=== PATIENT | female | born 1945 | race Hispanic/Latino ===

== ENCOUNTER 2018-11-12 20:16 | Emergency (ER) | payer MEDICARE ==
[~2018-11-12] VITALS: Ht 147.3 cm; Wt 59.0 kg
[~2018-11-12 20:16] MED LIST: AMLODIPINE BESYL5 MG PO; ATORVASTATIN CA20 MG PO; LEVAQUIN500 MG PO; LISINOPRIL10 MG PO; METFORMIN HCL500 MG PO; PREDNISONE10 MG PO
[2018-11-12] MEDS ORDERED: AMLODIPINE BESYLATE 5 MG TAB PO NR (21:00)
[2018-11-12] MEDS ORDERED: CLONIDINE HCL 0.1 MG TAB PO ONE (21:00)
[2018-11-12] MEDS ORDERED: ACETAMINOPHEN 325 MG TAB PO NR (21:00)
== END 2018-11-12 22:05 | disposition home or self-care (01) ==
LOC: FSED 20:16
DX: I10 Essential (primary) hypertension (principal); R51 Headache; E11.9 Type 2 diabetes mellitus without complications; Z79.84 Long term (current) use of oral hypoglycemic drugs
CPT/HCPCS: 99283

== ENCOUNTER 2019-04-04 19:33 | Observation (INO) | payer MEDICARE ==
[~2019-04-04] VITALS: Ht 147.3 cm; Wt 53.5 kg
--- OUTSIDE RECORDS SUMMARY | 2019-04-04 19:35 | XMS REPORT ---
Author Author [facility] Address Unknown Phone Unavailable Care Team Providers Care High Lift Operator Name Role Phone Unavailable Unavailable Problems This patient has no known problems. Allergies, Adverse Reactions, Alerts This patient has no known allergies or adverse reactions. Medications This patient has no known medications. Results Test Description Test Time Test Comments Text Results Atomic Results Result Comments BREAST ULTRASOUND RIGHT 2018-07-22 14:49:20 - BREAST ULTRASOUND RIGHTULTRASOUND OF RIGHT BREAST: 07/22/2018CLINICAL: Abnormal mammogram. No prior exams were available for comparison. Color flow and real-time ultrasound of the right breast were performed. Lopez scale images of the real-time examination were reviewed. The breast tissue has fibroglandular background echotexture. Targeted right breast ultrasound demonstrates a sebaceous cyst that measures 8 mm at 3 o'clock, 9 cm from the nipple, correlating with the mammographic skin based mass, benign. The rest of the survey ultrasound is negative. No axillary lymphadenopathy was seen.IMPRESSION: BENIGN Sebaceous cyst, benign. There is no sonographic evidence of malignancy. Resume annual screening mammography in one year. Amnol Vargas M.D. ss/:07/22/2018 14:49:20 Head Teller: Madhavi COFFEY, [facility] sent: BIRADS 1-2 Normal Ultrasound BI-RADS: 2 Benign SCR MAMM BILATERAL GABE CAD DIGITAL 2018-07-15 09:35:40 - SCR MAMM BILATERAL GABE CAD DIGITALBILATERAL DIGITAL SCREENING MAMMOGRAM 3D/2D WITH CAD: 07/15/2018CLINICAL: Asymptomatic. Digital breast tomosynthesis was performed in addition to routine CC and MLO views. Current mammographic images were evaluated by either a [employer] M-Vu or a [employer] Image[employer]er CAD (computer aided detection system). Comparison is made to exams dated 06/17/2017 mammogram, mammogram, and 06/05/2015 mammogram - [facility]. There are scattered fibroglandular tissues in both breasts. There is a partially visualized mass in the inferior right breast at posterior depth seen only on the mediolateral oblique view, 7 cm from the nipple. This finding is best seen on the right MLO tomosynthesis slice #41 and may be superficially located in the skin.No other significant masses, calcifications, or other findings are seen in either breast. IMPRESSION: INCOMPLETE ASSESSMENT: ADDITIONAL IMAGING EVALUATION RECOMMENDEDPartially visualized, inferior right b reast mass at posterior depth (best seen on right MLO tomosynthesis slice #41), which appears to be localized in the skin on the tomosynthesis images. Ultrasound with possible additional views are recommended. Shandra Woodruff D.O. al/:07/15/2018 09:35:40 Head Teller: Candelaria Malik FW, [facility] sent: Additional Imaging Mammogram BI-RADS: 0 Indeterminate
[2019-04-04] MEDS ORDERED: LABETALOL HCL 5 MG/ML 20ML VIAL IV STA (19:42)
[2019-04-04] MEDS ORDERED: NITROGLYCERIN 2% OINT 1 GM PKT TOP ONE (19:45)
[2019-04-04] MEDS ORDERED: ASPIRIN 81 MG CHEW TAB PO ONE (19:45)
[2019-04-04] MEDS ORDERED: FAMOTIDINE 20 MG/2 ML VIAL IV ONE ×2 (19:45→20:04)
[2019-04-04] MEDS ORDERED: ACETAMINOPHEN 325 MG TAB PO ONE (19:45)
[2019-04-04] MEDS ORDERED: ACETAMINOPHEN 325 MG TAB ONE (20:04)
[2019-04-04] MEDS ORDERED: ONDANSETRON HCL INJ 2MG/ML 2ML 2 MG/ML VIAL ONE (20:04)
[2019-04-04] MEDS ORDERED: NITROGLYCERIN 2% OINT 1 GM PKT ONE (20:04)
[2019-04-04] MEDS ORDERED: ASPIRIN 81 MG CHEW TAB ONE (20:04)
[2019-04-04] MEDS ORDERED: LABETALOL HCL 20 ML ONE (20:04)
[2019-04-04] MEDS: ONDANSETRON HCL INJ 2MG/ML 2ML 2 MG/ML VIAL IV PRN (20:07)
[2019-04-04] MEDS ORDERED: ONDANSETRON HCL INJ 2MG/ML 2ML 2 MG/ML VIAL IV PRN (20:30)
[2019-04-04] MEDS ORDERED: ENALAPRILAT IV INJ 1.25 MG/ML VIAL IV PRN (20:30)
[2019-04-04] MEDS ORDERED: DIPHENHYDRAMINE HCL INJ 50 MG/ML VIAL IV PRN (20:30)
[2019-04-04] MEDS ORDERED: MORPHINE SULFATE 2 MG/ML SYR 1ML IV PRN (20:30)
[2019-04-04] MEDS ORDERED: ZOLPIDEM TARTRATE 5 MG TAB PO PRN (20:30)
[2019-04-04] MEDS ORDERED: ENOXAPARIN SODIUM INJ 100 MG/ML SYR SC ONE ×2 (20:30→22:39)
--- NOTE | 2019-04-04 20:50 | Diagnostic Imaging Report ---
A single frontal view of the chest. HISTORY: Chest pain COMPARISON: None available. DISCUSSION: Portable technique, limits sensitivity of the exam. Tubes/Lines: None Lungs and pleura: The lungs are well inflated. No evidence of a consolidative pneumonia or pulmonary alveolar edema. No definite pleural effusion or pneumothorax is identified. Heart and mediastinum: The cardiomediastinal silhouette appear(s) unremarkable. Bones and soft tissues: Appear unremarkable, given this limited exam. IMPRESSION: No acute radiographic abnormality. Signed by: Dr. Abebe Ge D.O., M.M.M. on 04/04/2019 8:46 PM
--- NOTE | 2019-04-04 22:25 | NUR ---
Maria Luisa byrne in [facility] - 04/04/19 at 2300 by [facility] NTIFIED 30 MINUTE ETA NOTED.
--- NOTE | 2019-04-04 22:25 | NUR ---
[facility] NOTIFIED ETA 30 MINUTES
[2019-04-04] MEDS: FAMOTIDINE 20 MG TAB PO SCH (22:26)
[2019-04-04] MEDS: METOPROLOL TARTRATE 25 MG TAB PO SCH (22:26)
--- NOTE | 2019-04-04 22:50 | NUR ---
NITRO PASTE REMOVED R/T BP 116/63 HR [address] AMBROCIO. PT AMBULATORY TO BATHROOM. FAMILY AT BEDSIDE. DENIES PAIN AT THIS TIME,, RESP EQUAL AND UNLABORED.
[2019-04-04 23:30] VITALS: BP 133/63
--- NOTE | 2019-04-04 23:30 | NUR ---
Received to 187 from free standing ER. Placed on EKG, pulse ox & NBP for monitoring. Admission history, family history, Initial admission assessment done.
[2019-04-04 23:43] VITALS: BP 133/68
[2019-04-05] VITALS (9 sets, daily range): BP systolic 83–161; BP diastolic 51–81
--- NOTE | 2019-04-05 | NUR ---
BS 118. Pierce and soda given per request.
[2019-04-05] MEDS: SIMVASTATIN 40 MG TAB PO SCH ×2 (00:24→21:33)
[2019-04-05] MEDS: NITROGLYCERIN 2% OINT 1 GM PKT TOP SCH ×4 (00:24→18:00)
--- NOTE | 2019-04-05 04:30 | NUR ---
BP low. Ntg ointment removed.
--- NOTE | 2019-04-05 04:45 | NUR ---
Refused to sign consent for Stress Test at this time.
--- NOTE | 2019-04-05 05:20 | NUR ---
Dr Haynes here. Spoke with pt about stress test. Agrees to sign consent.
--- NOTE | 2019-04-05 05:25 | NUR ---
Consent for Stress Test signed by pt.
[2019-04-05 05:27] LABS: BASOPHILS % 0.5 % (0.0-1.0); EOSINOPHILS # (AUTO) 0.1 (0.0-0.4); EOSINOPHILS % 1.4 % (0.0-6.0); HEMATOCRIT 27.1 % (34.2-44.1); LYMPHOCYTES # (AUTO) 1.6 (1.0-3.2); LYMPHOCYTES % 28.7 % (18.0-39.1); MEAN CORPUSCULAR HEMOGLOBIN 28.8 pg (28-32); MEAN CORPUSCULAR HGB CONC 33.2 g/dL (31-35); MEAN CORPUSCULAR VOLUME 86.6 fL (81-99); MONOCYTES # (AUTO) 0.4 (0.2-0.8); MONOCYTES % 6.8 % (4.4-11.3); NEUTROPHILS # (AUTO) 3.6 (2.1-6.9); NEUTROPHILS % 62.3 % (38.7-80.0); PLATELET COUNT 244 x10e3/uL (140-360); RED BLOOD COUNT 3.13 x10e6/uL (3.6-5.1)
[2019-04-05] MEDS: ACETAMINOPHEN 325 MG TAB PO PRN ×2 (05:43→14:34)
[2019-04-05 05:58] LABS: CHOL/HDL RATIO 2.7 (3.0-3.6); CREATINE KINASE 62 IU/L (29-168)
[2019-04-05 06:14] LABS: ALANINE AMINOTRANSFERASE 9 IU/L (0-55); ALBUMIN 3.1 g/dL (3.5-5.0); ALBUMIN/GLOBULIN RATIO 1.2 (0.8-2.0); ALKALINE PHOSPHATASE 37 IU/L (40-150); ANION GAP 11.2 mmol/L (8-16); BLOOD UREA NITROGEN 20 mg/dL (7-26); BUN/CREATININE RATIO 24 (6-25); CALCIUM 8.9 mg/dL (8.4-10.2); CARBON DIOXIDE 21 mmol/L (22-29); CHLORIDE 99 mmol/L (98-107); CREATININE, SERUM 0.85 mg/dL (0.57-1.11); EST GLOMERULAR FILTRATION RATE > 60 ML/MIN (60-); GLUCOSE 104 mg/dL (74-118); POTASSIUM 3.2 mmol/L (3.5-5.1); SODIUM 128 mmol/L (136-145)
[2019-04-05] MEDS ORDERED: DEXTROSE 50% SYRINGE 50 ML IV PRN (06:45)
--- NOTE | 2019-04-05 07:05 | NUR ---
SPIRITUAL CARE Assessment: Spiritual concern. Pt worried about illness and requested prayer prior to procedure. Pt's daughter at bedside. Intervention: Provided pastoral presence, hospitality, and sympathetic listening. Provided prayer. Acquainted pt/daughter with availability of production administrator while hospitalized. Outcome: Pt & daughter expressed appreciation for visit. No need for follow up indicated at this time. SAMMIE MONTALVO Assembler For Puller Over Machine Spiritual Care Department O: [phone] Pager: [phone] ([phone] number calling from)
[2019-04-05] MEDS: INSULIN REGULAR, HUMAN 100 UNIT/1 ML 3ML VIAL SQ SCH ×4 (07:28→21:48)
[2019-04-05] MEDS: METOPROLOL TARTRATE 25 MG TAB PO SCH ×2 (08:28→21:34)
[2019-04-05] MEDS: FAMOTIDINE 20 MG TAB PO SCH ×2 (08:29→21:34)
[2019-04-05] MEDS: LISINOPRIL 10 MG TAB PO SCH (08:30)
[2019-04-05] MEDS: ASPIRIN 325 MG TAB EC PO SCH (08:30)
--- NOTE | 2019-04-05 09:43 | NUR ---
pt stable, pending stress test. per nuc med will be around noon. pt and family aware.
[2019-04-05] MEDS ORDERED: REGADENOSON 0.4 MG/5 ML SYR IV ONE (09:53)
--- NOTE | 2019-04-05 11:42 | Consultation ---
DATE OF CONSULTATION: 04/05/2019 Cardiology Consultation REQUESTING PHYSICIAN: Pedro Luis Haynes MD REASON FOR CONSULTATION: Chest pain. HISTORY OF PRESENT ILLNESS: This is a 73-year-old woman with history of hypertension and borderline diabetes mellitus, who presents with complaints of chest pain. The patient reports chest pain started yesterday around 6:30 p.m. She describes it as tight 8/10 in severity, associated with nausea and diaphoresis. There was no radiation. The pain lasted approximately an hour and improved with sublingual nitroglycerin. She denies any prior episodes. She denies edema, orthopnea or PND. She denies any recent travel or hormone therapy. REVIEW OF SYSTEMS: Negative, except as per HPI. PAST MEDICAL HISTORY: 1. Hypertension. 2. Borderline diabetes mellitus. PAST SURGICAL HISTORY: 1. Partial thyroidectomy. 2. section. ALLERGIES: PLEASE SEE EMR. MEDICATIONS: Please see medication list. SOCIAL HISTORY: Denies tobacco, alcohol or illicit drugs. FAMILY HISTORY: Denies history of heart disease. PHYSICAL EXAMINATION: VITAL SIGNS: Temperature 97.2 degrees, pulse 58, respiratory rate 18, blood pressure 123/67, oxygen saturation 100% on room air. GENERAL: Awake, alert, no distress, well developed, well nourished. HEENT: Normocephalic, atraumatic. Pupils equal. No scleral icterus. NECK: Supple. No thyromegaly or cervical lymphadenopathy. No carotid bruits. LUNGS: Clear to auscultation bilaterally. No wheezes or crackles. CARDIOVASCULAR: Normal rate, regular rhythm. No murmur. Normal S1, S2. ABDOMEN: Soft, nontender. EXTREMITIES: No edema. NEUROLOGIC: Nonfocal exam. LABORATORY DATA: WBC 5.72, hemoglobin 9, hematocrit 27.1, platelets 244. Sodium 128, potassium 3.2, chloride 99, CO2 of 21, BUN 20, creatinine 0.85. Troponin less than 0.001. Cholesterol 117, LDL 54, HDL 44, triglycerides 95. EKG, sinus rhythm with PACs. Chest x-ray, no acute radiographic abnormality. IMPRESSION: 1. Chest pain. 2. Hypertension. 3. Borderline diabetes mellitus. RECOMMENDATIONS: Trend cardiac enzymes to rule out myocardial infarction, given risk factors. Nuclear stress test to evaluate for ischemia. The patient indicates she is too weak to treadmill at this time. We will proceed with pharmacologic stress testing instead. Obtain echocardiogram. Monitor blood pressure closely. Continue home cardiac medications for now. Further recommendations pending test results. Thank you for this consult. We will continue to follow. Lesley Cosme MD ABS/MODL /[id number]
--- NOTE | 2019-04-05 12:08 | NUR ---
pt off unit for stress test
[2019-04-05] MEDS: ONDANSETRON HCL INJ 2MG/ML 2ML 2 MG/ML VIAL IV PRN (13:43)
--- NOTE | 2019-04-05 19:15 | NUR ---
Report received. Pt resting at side of bed with no apparent distress noted. Pt daughter is present at bedside. Will continue to monitor pt.
--- NOTE | 2019-04-05 19:22 | NUR ---
Dr. Cosme on unit seeing pt at this time. Per Dr. Cosme, pt is cleared from her standpoint.
--- NOTE | 2019-04-05 19:59 | Myoview Stress Test ---
DATE OF STUDY: 04/04/2019 23:41:00 Stress Test - Treadmill ONLY PROCEDURE TITLE: Rest/stress single isotope SPECT imaging with pharmacologic stress and gated SPECT imaging. INDICATION: Chest pain. PROCEDURE IN DETAIL: Pharmacologic stress test was performed with regadenoson per protocol. The heart rate was 56 beats per minute at rest, increased to 87 beats per minute during the regadenoson infusion. Resting blood pressure was 156/75 mmHg and decreased to 143/70 mmHg, which is a normal response. The resting electrocardiogram demonstrated normal sinus rhythm. There were no ST-segment changes suggestive of myocardial ischemia. Myocardial perfusion imaging was performed at rest following the injection of 11 millicuries of tetrofosmin. At peak pharmacologic effect, the patient was injected 32.1 millicurie of tetrofosmin. Gated post-stress tomographic imaging was performed. FINDINGS: The overall quality of the study is fair. Left ventricular cavity is noted to be normal size on the rest and stress studies. SPECT images demonstrate homogeneous tracer distribution throughout the myocardium. Gated SPECT imaging reveals normal myocardial thickening and wall motion. The left ventricular ejection fraction was calculated to be greater than 70%. IMPRESSION: Myocardial perfusion imaging is normal. Overall left ventricular systolic function was normal without regional wall motion abnormalities. Lesley Cosme MD ABS/MODL /[id number]
[2019-04-05 21:25] LABS: CREATINE KINASE 67 IU/L (29-168)
--- NOTE | 2019-04-06 | NUR ---
Rounds made at this time. Pt has no c/o pain. Pt resting in bed comfortably and daughter is present at bedside. Will continue to monitor.
[2019-04-06 00:24] VITALS: BP 150/77
[2019-04-06 00:32] VITALS: BP 149/72
[2019-04-06 04:56] VITALS: BP 151/85
[2019-04-06] MEDS: NITROGLYCERIN 2% OINT 1 GM PKT TOP SCH ×2 (06:00)
[2019-04-06 06:07] LABS: BASOPHILS % 0.6 % (0.0-1.0); EOSINOPHILS # (AUTO) 0.1 (0.0-0.4); EOSINOPHILS % 1.2 % (0.0-6.0); HEMATOCRIT 30.2 % (34.2-44.1); HEMOGLOBIN 10.1 g/dL (12.0-16.0); LYMPHOCYTES # (AUTO) 1.5 (1.0-3.2); LYMPHOCYTES % 23.3 % (18.0-39.1); MEAN CORPUSCULAR HGB CONC 33.4 g/dL (31-35); MEAN CORPUSCULAR VOLUME 86.8 fL (81-99); MONOCYTES # (AUTO) 0.5 (0.2-0.8); MONOCYTES % 7.6 % (4.4-11.3); NEUTROPHILS # (AUTO) 4.4 (2.1-6.9); PLATELET COUNT 260 x10e3/uL (140-360); RED BLOOD COUNT 3.48 x10e6/uL (3.6-5.1); RED CELL DISTRIBUTION WIDTH 12.9 % (11.7-14.4)
[2019-04-06 06:41] LABS: ALANINE AMINOTRANSFERASE 10 IU/L (0-55); ALBUMIN 3.2 g/dL (3.5-5.0); ALBUMIN/GLOBULIN RATIO 1.1 (0.8-2.0); ALKALINE PHOSPHATASE 37 IU/L (40-150); ANION GAP 9.8 mmol/L (8-16); BLOOD UREA NITROGEN 24 mg/dL (7-26); BUN/CREATININE RATIO 26 (6-25); CARBON DIOXIDE 25 mmol/L (22-29); CHLORIDE 102 mmol/L (98-107); CREATININE, SERUM 0.91 mg/dL (0.57-1.11); EST GLOMERULAR FILTRATION RATE > 60 ML/MIN (60-); GLUCOSE 87 mg/dL (74-118); POTASSIUM 3.8 mmol/L (3.5-5.1); SODIUM 133 mmol/L (136-145)
[2019-04-06 07:09] LABS: MAGNESIUM 1.7 MG/DL (1.3-2.1)
[2019-04-06 07:30] VITALS: BP 158/69
[2019-04-06] MEDS: INSULIN REGULAR, HUMAN 100 UNIT/1 ML 3ML VIAL SQ SCH (07:30)
[2019-04-06] MEDS: ASPIRIN 325 MG TAB EC PO SCH (08:05)
[2019-04-06] MEDS: LISINOPRIL 10 MG TAB PO SCH (08:05)
[2019-04-06] MEDS: FAMOTIDINE 20 MG TAB PO SCH (08:05)
[2019-04-06] MEDS: METOPROLOL TARTRATE 25 MG TAB PO SCH (08:06)
--- NOTE | 2019-04-24 19:43 | Discharge Summary ---
DISCHARGE DIAGNOSES: 1. Chest pain, rule out myocardial infarction. 2. Hypertension. HISTORY OF PRESENT ILLNESS AND HOSPITAL COURSE: See hospital chart for full details. The patient is a lady, well to me, who presented with some chest pain. She ruled out for an NH and she was noticed to have some hypertensive urgency, but the patient had been noncompliant with her medication, so she was restarted with her medication. Her blood pressure improved significantly. At the time of discharge, she really wanted to go home. She was ambulating well with no further chest pain and she will follow up in 1 to 2 weeks with me. She was instructed not to be noncompliant, which she states she would not be. Please see hospital chart for full details. MD MOISÉS Paige/NELSON /[id number]
== END 2019-04-06 09:05 | disposition home or self-care (01) ==
LOC: FSED 19:33 → ERHOLD 20:32 → IMCU 23:21
PROVIDERS: ADMIT Internal Medicine; ATTEND Internal Medicine
DX: I16.0 Hypertensive urgency (principal); R07.89 Other chest pain; E78.00 Pure hypercholesterolemia, unspecified; E11.9 Type 2 diabetes mellitus without complications; E87.6 Hypokalemia
CPT/HCPCS: 36415 ×2; 71045; 78452; 80053 ×3; 80061; 81003; 82550; 82553 ×2; 82948; 83036; 83735; 84484 ×2; 85025 ×3; 85610; 93005; 93017; 93306; 96372; 96374; 96375; 99284; A9502; G0378 ×3; J1200; J1650; J1817; J2270; J2405 ×2; J2785; J3490

== ENCOUNTER 2020-03-02 11:31 | Emergency (ER) | payer MEDICARE ==
[~2020-03-02] VITALS: Ht 147.3 cm; Wt 53.5 kg
--- NOTE | 2020-03-02 11:44 | Emergency Department Note ---
History of Present Illnes History of Present Illness Chief Complaint: COVID PUI History of Present Illness This is a 74 year old female arrives to the ED with complaints of nausea and generalized malaise. Pt had a covid swab done on Friday with results pending.. Aircraft Structural Design Engineer Required: No Onset (how long ago): day(s) Severity: mild Duration (how long): day(s) Timing of current episode: constant Progression: unchanged Chronicity: new Past Medical/Family History Physician Review I have reviewed the patient's past medical and family history. Any updates have been documented here. Past Medical History Past Medical History: Hypertension, Diabetes, Hypothyroidism Past Surgical History: Other Surgery: THYROID Social History Smoking Cessation: Never Smoker Counseling Performed: No Alcohol Use: Social Physically hurt or threatened: No Family History Family history of heart diseas: Yes Other Last Tetanus: UTD Review of Systems Review of Systems Constitutional: Reports as per HPI EENTM: Reports no symptoms Cardiovascular: Reports no symptoms Respiratory: Reports as per HPI Gastrointestinal: Reports no symptoms Genitourinary: Reports no symptoms Musculoskeletal: Reports no symptoms Integumentary: Reports no symptoms Neurological: Reports no symptoms Psychological: Reports no symptoms Endocrine: Reports no symptoms Hematological/Lymphatic: Reports no symptoms Physical Exam Related Data Allergies: Coded Allergies: No Known Allergies (Unverified , 04/04/19) Vital signs reviewed: Yes Physical Exam CONSTITUTIONAL Constitutional: Present well-developed, Present well-nourished HENT HENT: Present normocephalic, Present atraumatic, Present oropharynx clear/moist, Present nose normal HENT L/R: Present left ext ear normal, Present right ext ear normal EYES Eyes: Reports PERRL, Reports conjunctivae normal NECK Neck: Present ROM normal PULMONARY Pulmonary: Present effort normal, Present breath sounds normal CARDIOVASCULAR Cardiovascular: Present regular rhythm, Present heart sounds normal, Present capillary refill normal, Present normal rate GASTROINTESTINAL Abdominal: Present soft, Present nontender, Present bowel sounds normal GENITOURINARY Genitourinary: Present exam deferred SKIN Skin: Present warm, Present dry MUSCULOSKELETAL Musculoskeletal: Present ROM normal NEUROLOGICAL Neurological: Present alert, Present oriented x 3, Present no gross motor or sensory deficits PSYCHOLOGICAL Psychological: Present mood/affect normal, Present judgement normal Results Imaging Imaging results reviewed: Yes Assessment & Plan Medical Decision Making MDM 74-year-old well-appearing female arrives to the ED with complaints of cough fever loss of taste and smell. Patient is clinically presenting with signs and symptoms consistent with Covid 19. Patient informed she is positive until proven otherwise. Patient's oxygen saturation remained 99% even on exertion, no evidence of tachypnea or dyspnea noted in the ED. Spoke present length about the importance of sleeping on his stomach and rotating from side to side. Z-Mj given, signs and symptoms for return discussed. In the light of the Covid pandemic, disaster medicine care was given- patient understands whys he was not retested for Covid 19 in the ED. Pt understands he is at high risk of morbidity and mortality given his age and co-morbidiites. Pt understands he is welcome to return to the ED at anytime for worsening symptoms. Assessment & Plan Final Impression: (1) COVID-19 Depart Disposition: HOME, SELF-FCI Meds Reported Medications Lisinopril (LISINOPRIL) 10 Mg Tablet, 20 MG PO DAILY, #30 TAB 01/14/17 Amlodipine Besylate (AMLODIPINE BESYLATE) 5 Mg Tablet, 5 MG PO DAILY, #30 TAB 01/14/17 Atorvastatin Calcium (ATORVASTATIN CALCIUM) 20 Mg Tablet, 20 MG PO HS, #30 TAB 01/14/17 Metformin Hcl (METFORMIN HCL) 500 Mg Tablet, 1000 MG PO BID, #60 TAB 01/14/17 Levofloxacin (LEVAQUIN) 500 Mg Tablet, 500 MG PO DAILY, TAB 01/14/17 Prednisone (PREDNISONE) 10 Mg Tab, 10 MG PO DAILY, TAB 01/14/17 Medications in the ED Ondansetron HCl 4 mg ONCE ONCE PO ; Start 03/02/20 at 11:45; Stop 03/02/20 at 11:46; Status MAURICE BLUM, DO Mar 02, 2020 11:44
[2020-03-02] MEDS ORDERED: ONDANSETRON HCL 4 MG ORAL DISINTEGRATING TAB PO ONE (11:45)
--- NOTE | 2020-03-02 12:59 | Diagnostic Imaging Report ---
EXAM: CHEST SINGLE (PORTABLE) DATE: 03/02/2020 12:19 PM INDICATION: Nausea, vomiting, diarrhea COMPARISON: 04/04/2019 FINDINGS: The trachea is midline. The lungs are symmetrically expanded without evidence for large focal consolidation, pneumothorax, or significant pleural effusion. The cardiomediastinal silhouette and pulmonary vasculature are within normal limits. No acute osseous abnormality is identified. IMPRESSION: No acute cardiopulmonary process identified. Signed by: Dr. Moisés Ochoa MD on 03/02/2020 12:55 PM
== END 2020-03-02 13:11 | disposition home or self-care (01) ==
LOC: ER 11:34
DX: U07.1 COVID-19 (principal); R50.9 Fever, unspecified; R05 Cough; R53.81 Other malaise; R11.0 Nausea
CPT/HCPCS: 71045; 99283; Q0162

== ENCOUNTER 2020-03-04 09:43 | Inpatient (IN) | payer MEDICARE, OTHER ==
[~2020-03-04] VITALS: Ht 177.8 cm; Wt 58.6 kg
[2020-03-04] MEDS: PIPER-TAZ 3.375 GM 50 ML IV SCH ×2 (09:00→20:31)
[2020-03-04] MEDS ORDERED: PANTOPRAZOLE 40 MG 10ML VIAL IV STA (10:05)
[2020-03-04] MEDS ORDERED: ONDANSETRON HCL INJ 2MG/ML 2ML 2 MG/ML VIAL IV STA (10:05)
[2020-03-04] MEDS ORDERED: SODIUM CHLORIDE 0.9% 1000ML 1,000 ML IV STA (10:05)
[2020-03-04 11:01] LABS: BASOPHILS % 0.6 % (0.0-1.0); EOSINOPHILS # (AUTO) 0.1 (0.0-0.4); EOSINOPHILS % 1.6 % (0.0-6.0); HEMATOCRIT 31.9 % (34.2-44.1); HEMOGLOBIN 11.6 g/dL (12.0-16.0); LYMPHOCYTES # (AUTO) 1.3 (1.0-3.2); LYMPHOCYTES % 25.4 % (18.0-39.1); MEAN CORPUSCULAR HEMOGLOBIN 28.4 pg (28-32); MEAN CORPUSCULAR HGB CONC 36.4 g/dL (31-35); MEAN CORPUSCULAR VOLUME 78.2 fL (81-99); MONOCYTES # (AUTO) 0.5 (0.2-0.8); MONOCYTES % 9.6 % (4.4-11.3); NEUTROPHILS # (AUTO) 3.1 (2.1-6.9); NEUTROPHILS % 62.4 % (38.7-80.0); PLATELET COUNT 282 x10e3/uL (140-360); RED BLOOD COUNT 4.08 x10e6/uL (3.6-5.1); RED CELL DISTRIBUTION WIDTH 12.6 % (11.7-14.4)
[2020-03-04 11:10] LABS: INR 0.95; PROTHROMBIN TIME 13.2 seconds (11.9-14.5)
[2020-03-04 11:11] LABS: PARTIAL THROMBOPLASTIN TIME 35.9 seconds (23.8-35.5)
[2020-03-04] MEDS ORDERED: MORPHINE SULFATE INJ 4 MG/ML INJ 1ML IV STA (11:38)
[2020-03-04 11:39] LABS: ALANINE AMINOTRANSFERASE 191 IU/L (0-55); ALBUMIN 3.5 g/dL (3.5-5.0); ALBUMIN/GLOBULIN RATIO 1.1 (0.8-2.0); ALKALINE PHOSPHATASE 63 IU/L (40-150); AMYLASE 58 U/L (25-125); ANION GAP 17.2 mmol/L (8-16); BLOOD UREA NITROGEN 10 mg/dL (7-26); BUN/CREATININE RATIO 12 (6-25); CALCIUM 8.4 mg/dL (8.4-10.2); CARBON DIOXIDE 18 mmol/L (22-29); CHLORIDE 83 mmol/L (98-107); CREATINE KINASE 603 IU/L (29-168); CREATININE, SERUM 0.86 mg/dL (0.57-1.11); EST GLOMERULAR FILTRATION RATE > 60 ML/MIN (60-); GLUCOSE 98 mg/dL (74-118); LIPASE 61 U/L (8-78); POTASSIUM 3.2 mmol/L (3.5-5.1)
[2020-03-04 11:41] LABS: SODIUM 115 mmol/L (136-145)
[2020-03-04] MEDS ORDERED: MAGNESIUM SULFATE 2GM/50ML 50 ML IV ONE (11:45)
[2020-03-04 13:33] LABS: CLARITY,URINE CLEAR (CLEAR); COLOR,URINE YELLOW (YELLOW); KETONES,URINE 1+ (NEGATIVE); LEUKOCYTE ESTERASE ,URINE NEGATIVE (NEGATIVE); NITRITE,URINE NEGATIVE (NEGATIVE); PROTEIN,URINE DIPSTICK 1+ (NEGATIVE); URINE UROBILINOGEN 0.2 mg/dL (0.2 - 1)
[2020-03-04 13:34] LABS: BACTERIA,URINE FEW /HPF; BILIRUBIN,URINE NEGATIVE (NEGATIVE); EPITHELIAL CELLS,URINE MODERATE /LPF; RBC,URINE 0-5 /HPF (0-5); WBC,URINE (MAN) 0-5 /HPF (0-5)
[2020-03-04] MEDS: MORPHINE SULFATE INJ 4 MG/ML INJ 1ML IV PRN ×2 (16:36→21:00)
[2020-03-04] MEDS: ONDANSETRON HCL INJ 2MG/ML 2ML 2 MG/ML VIAL IV PRN ×2 (16:37→21:00)
[2020-03-04] MEDS: METRONIDAZOLE 500MG/NS 100ML IV SCH ×2 (16:37→21:30)
[2020-03-04] MEDS: SODIUM CHLORIDE 0.9% 1000ML 1,000 ML IV SCH ×4 (16:37→20:31)
[2020-03-04] MEDS ORDERED: IOPAMIDOL 370 MG/ML 200 ML INFUS..BTL INJ ONE (19:42)
[2020-03-04] MEDS ORDERED: SODIUM CHLORIDE 0.9% 50ML 50 ML ONE (19:42)
[2020-03-04 20:00] VITALS: BP 138/66
[2020-03-04 22:00] VITALS: BP 138/66
[2020-03-05] VITALS (8 sets, daily range): BP systolic 112–127; BP diastolic 57–64
[2020-03-05 02:25] LABS: CREATINE KINASE MB 7.7 ng/mL (0-5.0)
[2020-03-05] MEDS: PIPER-TAZ 3.375 GM 50 ML IV SCH ×4 (03:00→21:27)
[2020-03-05] MEDS: METRONIDAZOLE 500MG/NS 100ML IV SCH ×4 (03:00→20:37)
[2020-03-05 05:57] LABS: BASOPHILS % 0.7 % (0.0-1.0); EOSINOPHILS # (AUTO) 0.1 (0.0-0.4); HEMATOCRIT 25.3 % (34.2-44.1); HEMOGLOBIN 9.4 g/dL (12.0-16.0); LYMPHOCYTES # (AUTO) 0.9 (1.0-3.2); LYMPHOCYTES % 14.8 % (18.0-39.1); MEAN CORPUSCULAR HEMOGLOBIN 31.8 pg (28-32); MEAN CORPUSCULAR HGB CONC 37.2 g/dL (31-35); MEAN CORPUSCULAR VOLUME 85.5 fL (81-99); MONOCYTES # (AUTO) 0.7 (0.2-0.8); MONOCYTES % 11.1 % (4.4-11.3); NEUTROPHILS # (AUTO) 4.2 (2.1-6.9); NEUTROPHILS % 71.9 % (38.7-80.0); PLATELET COUNT 189 x10e3/uL (140-360); RED BLOOD COUNT 2.96 x10e6/uL (3.6-5.1); RED CELL DISTRIBUTION WIDTH 13.5 % (11.7-14.4)
[2020-03-05 06:37] LABS: ALANINE AMINOTRANSFERASE 135 IU/L (0-55); ALBUMIN 2.6 g/dL (3.5-5.0); ALBUMIN/GLOBULIN RATIO 1.1 (0.8-2.0); ALKALINE PHOSPHATASE 50 IU/L (40-150); ANION GAP 15.3 mmol/L (8-16); BLOOD UREA NITROGEN 8 mg/dL (7-26); BUN/CREATININE RATIO 9 (6-25); CALCIUM 7.6 mg/dL (8.4-10.2); CARBON DIOXIDE 15 mmol/L (22-29); CHLORIDE 95 mmol/L (98-107); EST GLOMERULAR FILTRATION RATE > 60 ML/MIN (60-); GLUCOSE 90 mg/dL (74-118); MAGNESIUM 1.7 MG/DL (1.3-2.1); POTASSIUM 3.3 mmol/L (3.5-5.1); SODIUM 122 mmol/L (136-145)
[2020-03-05 07:16] LABS: CREATINE KINASE 282 IU/L (29-168)
[2020-03-05] MEDS: SODIUM CHLORIDE 0.9% 1000ML 1,000 ML IV SCH ×3 (08:15→20:26)
[2020-03-05] MEDS: ACETAMINOPHEN 325 MG TAB PO PRN ×2 (11:48→20:45)
[2020-03-06] VITALS (8 sets, daily range): BP systolic 112–148; BP diastolic 61–68
[2020-03-06] MEDS: PIPER-TAZ 3.375 GM 50 ML IV SCH ×4 (03:30→20:46)
[2020-03-06] MEDS: METRONIDAZOLE 500MG/NS 100ML IV SCH ×4 (04:00→20:46)
[2020-03-06 06:10] LABS: BASOPHILS % 0.7 % (0.0-1.0); EOSINOPHILS # (AUTO) 0.1 (0.0-0.4); EOSINOPHILS % 1.1 % (0.0-6.0); HEMATOCRIT 25.9 % (34.2-44.1); HEMOGLOBIN 9.4 g/dL (12.0-16.0); LYMPHOCYTES # (AUTO) 1.2 (1.0-3.2); LYMPHOCYTES % 22.3 % (18.0-39.1); MEAN CORPUSCULAR HEMOGLOBIN 31.6 pg (28-32); MEAN CORPUSCULAR HGB CONC 36.3 g/dL (31-35); MEAN CORPUSCULAR VOLUME 87.2 fL (81-99); MONOCYTES # (AUTO) 0.5 (0.2-0.8); MONOCYTES % 9.5 % (4.4-11.3); NEUTROPHILS # (AUTO) 3.6 (2.1-6.9); PLATELET COUNT 203 x10e3/uL (140-360); RED BLOOD COUNT 2.97 x10e6/uL (3.6-5.1); RED CELL DISTRIBUTION WIDTH 14.3 % (11.7-14.4)
[2020-03-06 06:42] LABS: ALBUMIN 2.7 g/dL (3.5-5.0); ALBUMIN/GLOBULIN RATIO 1.1 (0.8-2.0); ANION GAP 16.5 mmol/L (8-16); CALCIUM 8.1 mg/dL (8.4-10.2); CREATININE, SERUM 0.92 mg/dL (0.57-1.11); POTASSIUM 3.5 mmol/L (3.5-5.1)
[2020-03-06] MEDS: ARTIFICIAL TEARS (OPTH) 15 ML BTL OU PRN ×2 (09:09→20:46)
[2020-03-06] MEDS: SODIUM CHLORIDE 0.9% 1000ML 1,000 ML IV SCH (14:15)
[2020-03-06] MEDS: ACETAMINOPHEN 325 MG TAB PO PRN (20:47)
[2020-03-07] VITALS (7 sets, daily range): BP systolic 136–159; BP diastolic 65–85
[2020-03-07] MEDS: ZOLPIDEM TARTRATE 5 MG TAB PO PRN ×2 (00:45→22:30)
[2020-03-07] MEDS: SODIUM CHLORIDE 0.9% 1000ML 1,000 ML IV SCH ×4 (02:58→23:54)
[2020-03-07] MEDS: PIPER-TAZ 3.375 GM 50 ML IV SCH ×4 (03:05→21:00)
[2020-03-07] MEDS: METRONIDAZOLE 500MG/NS 100ML IV SCH ×4 (03:05→21:28)
[2020-03-07 05:56] LABS: BASOPHILS % 0.4 % (0.0-1.0); EOSINOPHILS # (AUTO) 0.1 (0.0-0.4); HEMOGLOBIN 9.8 g/dL (12.0-16.0); LYMPHOCYTES # (AUTO) 1.5 (1.0-3.2); MEAN CORPUSCULAR HEMOGLOBIN 31.2 pg (28-32); MEAN CORPUSCULAR HGB CONC 36.3 g/dL (31-35); MONOCYTES # (AUTO) 0.6 (0.2-0.8); NEUTROPHILS # (AUTO) 4.9 (2.1-6.9); NEUTROPHILS % 68.2 % (38.7-80.0); PLATELET COUNT 216 x10e3/uL (140-360); RED BLOOD COUNT 3.14 x10e6/uL (3.6-5.1); RED CELL DISTRIBUTION WIDTH 14.4 % (11.7-14.4)
[2020-03-07 06:33] LABS: ALANINE AMINOTRANSFERASE 95 IU/L (0-55); ALBUMIN/GLOBULIN RATIO 1.2 (0.8-2.0); ALKALINE PHOSPHATASE 53 IU/L (40-150); ANION GAP 15.1 mmol/L (8-16); BLOOD UREA NITROGEN < 5 mg/dL (7-26); CALCIUM 8.4 mg/dL (8.4-10.2); CARBON DIOXIDE 14 mmol/L (22-29); CHLORIDE 107 mmol/L (98-107); CREATININE, SERUM 0.79 mg/dL (0.57-1.11); EST GLOMERULAR FILTRATION RATE > 60 ML/MIN (60-); GLUCOSE 81 mg/dL (74-118); MAGNESIUM 1.3 MG/DL (1.3-2.1); POTASSIUM 3.1 mmol/L (3.5-5.1); SODIUM 133 mmol/L (136-145)
[2020-03-07 06:34] LABS: BUN/CREATININE RATIO 6 (6-25)
[2020-03-07] MEDS ORDERED: POTASSIUM CHLORIDE 20 MEQ TAB CR PO ONE (11:15)
[2020-03-07] MEDS: ACETAMINOPHEN 325 MG TAB PO PRN (21:29)
[2020-03-08] VITALS (7 sets, daily range): BP systolic 135–157; BP diastolic 72–80
[2020-03-08] MEDS: METRONIDAZOLE 500MG/NS 100ML IV SCH ×4 (03:00→20:37)
[2020-03-08] MEDS: PIPER-TAZ 3.375 GM 50 ML IV SCH ×4 (04:27→21:22)
[2020-03-08] MEDS: ACETAMINOPHEN 325 MG TAB PO PRN ×2 (05:45→17:52)
[2020-03-08] MEDS: SODIUM CHLORIDE 0.9% 1000ML 1,000 ML IV SCH ×3 (06:40→23:57)
[2020-03-08 07:15] LABS: ALANINE AMINOTRANSFERASE 70 IU/L (0-55); ALBUMIN 2.6 g/dL (3.5-5.0); ALBUMIN/GLOBULIN RATIO 1.1 (0.8-2.0); ALKALINE PHOSPHATASE 39 IU/L (40-150); ANION GAP 11.9 mmol/L (8-16); CALCIUM 7.9 mg/dL (8.4-10.2); CARBON DIOXIDE 16 mmol/L (22-29); CHLORIDE 108 mmol/L (98-107); EST GLOMERULAR FILTRATION RATE > 60 ML/MIN (60-); GLUCOSE 81 mg/dL (74-118); SODIUM 133 mmol/L (136-145)
[2020-03-08 07:24] LABS: BLOOD UREA NITROGEN < 5 mg/dL (7-26); BUN/CREATININE RATIO 7 (6-25)
[2020-03-08 07:26] LABS: MAGNESIUM 1.1 MG/DL (1.3-2.1); POTASSIUM 2.9 mmol/L (3.5-5.1)
[2020-03-08] MEDS ORDERED: MAGNESIUM SULFATE 2GM/50ML 50 ML IV ONE (08:30)
[2020-03-08] MEDS: POTASSIUM CHLORIDE 20 MEQ TAB CR PO SCH (09:02)
[2020-03-08] MEDS ORDERED: POTASSIUM CHLORIDE 20 MEQ TAB CR PO SCH (12:00)
[2020-03-08] MEDS ORDERED: MAGNESIUM SULFATE 2GM/50ML 50 ML IV SCH (12:00)
[2020-03-08] MEDS: ZOLPIDEM TARTRATE 5 MG TAB PO PRN (22:25)
[2020-03-09] VITALS (8 sets, daily range): BP systolic 138–155; BP diastolic 65–80
[2020-03-09] MEDS: PIPER-TAZ 3.375 GM 50 ML IV SCH ×5 (02:23→21:32)
[2020-03-09] MEDS: METRONIDAZOLE 500MG/NS 100ML IV SCH ×4 (03:21→20:08)
[2020-03-09] MEDS: SODIUM CHLORIDE 0.9% 1000ML 1,000 ML IV SCH ×3 (05:15→21:15)
[2020-03-09 06:27] LABS: BASOPHILS % 0.4 % (0.0-1.0); EOSINOPHILS # (AUTO) 0.3 (0.0-0.4); EOSINOPHILS % 3.6 % (0.0-6.0); HEMATOCRIT 26.4 % (34.2-44.1); HEMOGLOBIN 8.9 g/dL (12.0-16.0); LYMPHOCYTES # (AUTO) 1.4 (1.0-3.2); LYMPHOCYTES % 17.6 % (18.0-39.1); MEAN CORPUSCULAR HEMOGLOBIN 28.3 pg (28-32); MEAN CORPUSCULAR HGB CONC 33.7 g/dL (31-35); MEAN CORPUSCULAR VOLUME 83.8 fL (81-99); MONOCYTES # (AUTO) 0.6 (0.2-0.8); MONOCYTES % 8.3 % (4.4-11.3); NEUTROPHILS # (AUTO) 5.4 (2.1-6.9); NEUTROPHILS % 69.6 % (38.7-80.0); PLATELET COUNT 271 x10e3/uL (140-360); RED BLOOD COUNT 3.15 x10e6/uL (3.6-5.1); RED CELL DISTRIBUTION WIDTH 14.4 % (11.7-14.4)
[2020-03-09 06:39] LABS: ALANINE AMINOTRANSFERASE 56 IU/L (0-55); ALBUMIN 2.5 g/dL (3.5-5.0); ALKALINE PHOSPHATASE 40 IU/L (40-150); ANION GAP 11.3 mmol/L (8-16); CALCIUM 7.7 mg/dL (8.4-10.2); CARBON DIOXIDE 16 mmol/L (22-29); CHLORIDE 110 mmol/L (98-107); CREATININE, SERUM 0.69 mg/dL (0.57-1.11); EST GLOMERULAR FILTRATION RATE > 60 ML/MIN (60-); GLUCOSE 81 mg/dL (74-118); MAGNESIUM 1.8 MG/DL (1.3-2.1); POTASSIUM 3.3 mmol/L (3.5-5.1); SODIUM 134 mmol/L (136-145)
[2020-03-09 06:40] LABS: BLOOD UREA NITROGEN < 5 mg/dL (7-26); BUN/CREATININE RATIO 7 (6-25)
[2020-03-09] MEDS: ACETAMINOPHEN 325 MG TAB PO PRN ×2 (08:00→15:30)
[2020-03-09] MEDS ORDERED: POTASSIUM CHLORIDE 20 MEQ TAB CR PO NR (09:00)
[2020-03-09] MEDS ORDERED: POTASSIUM CHLORIDE 20 MEQ TAB CR PO ONE (11:02)
[2020-03-09] MEDS: ZOLPIDEM TARTRATE 5 MG TAB PO PRN (23:42)
[2020-03-10] VITALS (8 sets, daily range): BP systolic 126–160; BP diastolic 72–80
[2020-03-10] MEDS: MORPHINE SULFATE INJ 4 MG/ML INJ 1ML IV PRN (03:17)
[2020-03-10] MEDS: PIPER-TAZ 3.375 GM 50 ML IV SCH ×4 (03:17→21:45)
[2020-03-10] MEDS: METRONIDAZOLE 500MG/NS 100ML IV SCH ×4 (03:17→21:00)
[2020-03-10 05:17] LABS: BASOPHILS % 0.5 % (0.0-1.0); EOSINOPHILS # (AUTO) 0.3 (0.0-0.4); EOSINOPHILS % 2.8 % (0.0-6.0); HEMATOCRIT 25.4 % (34.2-44.1); HEMOGLOBIN 8.6 g/dL (12.0-16.0); LYMPHOCYTES # (AUTO) 2.2 (1.0-3.2); LYMPHOCYTES % 25.1 % (18.0-39.1); MEAN CORPUSCULAR HEMOGLOBIN 28.3 pg (28-32); MEAN CORPUSCULAR HGB CONC 33.9 g/dL (31-35); MEAN CORPUSCULAR VOLUME 83.6 fL (81-99); MONOCYTES # (AUTO) 0.8 (0.2-0.8); MONOCYTES % 8.6 % (4.4-11.3); NEUTROPHILS # (AUTO) 5.5 (2.1-6.9); NEUTROPHILS % 62.3 % (38.7-80.0); PLATELET COUNT 264 x10e3/uL (140-360); RED BLOOD COUNT 3.04 x10e6/uL (3.6-5.1); RED CELL DISTRIBUTION WIDTH 14.6 % (11.7-14.4)
[2020-03-10 05:41] LABS: ALANINE AMINOTRANSFERASE 44 IU/L (0-55); ALBUMIN 2.5 g/dL (3.5-5.0); ALKALINE PHOSPHATASE 40 IU/L (40-150); ANION GAP 13.5 mmol/L (8-16); CALCIUM 7.7 mg/dL (8.4-10.2); CARBON DIOXIDE 15 mmol/L (22-29); CHLORIDE 111 mmol/L (98-107); CREATININE, SERUM 0.68 mg/dL (0.57-1.11); EST GLOMERULAR FILTRATION RATE > 60 ML/MIN (60-); GLUCOSE 81 mg/dL (74-118); POTASSIUM 3.5 mmol/L (3.5-5.1); SODIUM 136 mmol/L (136-145)
[2020-03-10] MEDS: SODIUM CHLORIDE 0.9% 1000ML 1,000 ML IV SCH ×3 (05:41→21:15)
[2020-03-10 05:42] LABS: BLOOD UREA NITROGEN < 5 mg/dL (7-26); BUN/CREATININE RATIO 7 (6-25)
[2020-03-10] MEDS ORDERED: POTASSIUM CHLORIDE 20 MEQ TAB CR PO SCH (08:45)
[2020-03-10] MEDS: POTASSIUM CHLORIDE 20 MEQ TAB CR PO SCH (09:11)
[2020-03-10] MEDS: ONDANSETRON HCL INJ 2MG/ML 2ML 2 MG/ML VIAL IV PRN (11:48)
[2020-03-10] MEDS ORDERED: FLAGYL500 MG PO (14:01)
[2020-03-10] MEDS: ACETAMINOPHEN 325 MG TAB PO PRN ×2 (15:52→20:34)
[2020-03-10] MEDS: ZOLPIDEM TARTRATE 5 MG TAB PO PRN (20:33)
[2020-03-11 00:27] VITALS: BP 144/73
[2020-03-11] MEDS: METRONIDAZOLE 500MG/NS 100ML IV SCH ×2 (03:25→09:00)
[2020-03-11 04:00] VITALS: BP 160/80
[2020-03-11] MEDS: PIPER-TAZ 3.375 GM 50 ML IV SCH ×2 (04:00→09:27)
[2020-03-11] MEDS: SODIUM CHLORIDE 0.9% 1000ML 1,000 ML IV SCH (05:15)
[2020-03-11 06:03] LABS: BASOPHILS % 0.5 % (0.0-1.0); EOSINOPHILS # (AUTO) 0.2 (0.0-0.4); EOSINOPHILS % 2.6 % (0.0-6.0); HEMATOCRIT 27.2 % (34.2-44.1); HEMOGLOBIN 9.1 g/dL (12.0-16.0); LYMPHOCYTES # (AUTO) 2.1 (1.0-3.2); MEAN CORPUSCULAR HEMOGLOBIN 29.3 pg (28-32); MEAN CORPUSCULAR HGB CONC 33.5 g/dL (31-35); MEAN CORPUSCULAR VOLUME 87.5 fL (81-99); MONOCYTES # (AUTO) 0.8 (0.2-0.8); MONOCYTES % 9.8 % (4.4-11.3); NEUTROPHILS # (AUTO) 5.2 (2.1-6.9); NEUTROPHILS % 61.4 % (38.7-80.0); PLATELET COUNT 283 x10e3/uL (140-360); RED BLOOD COUNT 3.11 x10e6/uL (3.6-5.1)
[2020-03-11 06:48] LABS: ALANINE AMINOTRANSFERASE 34 IU/L (0-55); ALBUMIN 2.4 g/dL (3.5-5.0); ALBUMIN/GLOBULIN RATIO 0.9 (0.8-2.0); ALKALINE PHOSPHATASE 43 IU/L (40-150); ANION GAP 9.6 mmol/L (8-16); BLOOD UREA NITROGEN < 5 mg/dL (7-26); CALCIUM 8.2 mg/dL (8.4-10.2); CARBON DIOXIDE 16 mmol/L (22-29); CHLORIDE 111 mmol/L (98-107); CREATININE, SERUM 0.71 mg/dL (0.57-1.11); EST GLOMERULAR FILTRATION RATE > 60 ML/MIN (60-); GLUCOSE 81 mg/dL (74-118); MAGNESIUM 1.3 MG/DL (1.3-2.1); POTASSIUM 3.6 mmol/L (3.5-5.1); SODIUM 133 mmol/L (136-145)
[2020-03-11 06:54] LABS: BUN/CREATININE RATIO 7 (6-25)
[2020-03-11 07:56] VITALS: BP 147/73
[2020-03-11 08:00] VITALS: BP 147/73
[2020-03-11] MEDS ORDERED: MAGNESIUM SULF 1GRAM/DEXTROSE 100 ML IV ONE (08:15)
[2020-03-11] MEDS: ACETAMINOPHEN 325 MG TAB PO PRN (08:28)
[2020-03-11 11:39] VITALS: BP 145/72
== END 2020-03-11 15:17 | disposition home or self-care (01) | DRG 392 ==
LOC: ER 09:58 → ERHOLD 14:17 → MED/SURG3 19:53
PROVIDERS: ADMIT Internal Medicine; ATTEND Internal Medicine
DX: K52.9 Noninfective gastroenteritis and colitis, unspecified (principal); E87.1 Hypo-osmolality and hyponatremia; K86.2 Cyst of pancreas; E44.1 Mild protein-calorie malnutrition; Z68.1 Body mass index [BMI] 19.9 or less, adult; E11.9 Type 2 diabetes mellitus without complications; D64.9 Anemia, unspecified; E83.42 Hypomagnesemia; I10 Essential (primary) hypertension; E87.6 Hypokalemia; E03.9 Hypothyroidism, unspecified; E86.0 Dehydration; K44.9 Diaphragmatic hernia without obstruction or gangrene; Z79.84 Long term (current) use of oral hypoglycemic drugs
CPT/HCPCS: 36415; 71045; 71260; 74177; 80053; 81001; 82150; 82378; 82550; 82553; 82948; 83690; 83735; 84484; 85025; 85610; 85730; 86301; 87086; 93005; 96361; 99283; 99284; J2270; J2405; J2543; J3475; J7030; Q0162; Q9967; U0002

== ENCOUNTER 2022-01-31 20:10 | Inpatient (IN) | payer MEDICARE ==
[~2022-01-31] VITALS: Ht 149.9 cm; Wt 52.2 kg
[~2022-01-31 20:10] MED LIST changes: +FLAGYL500 MG PO
[2022-01-31] MEDS ORDERED: SODIUM CHLORIDE 0.9% 1000ML 1,000 ML IV STA (20:59)
[2022-01-31] MEDS ORDERED: FAMOTIDINE 20 MG/2 ML VIAL IV ONE ×2 (21:00→21:26)
[2022-01-31] MEDS ORDERED: PROMETHAZINE 12.5MG/ NACL 0.9% 12.5 MG/50 ML BAG IV ONE (21:00)
[2022-01-31] MEDS ORDERED: SODIUM CHLORIDE 0.9% 1000ML 1,000 ML ONE ×2 (21:26→23:16)
[2022-01-31] MEDS ORDERED: PROMETHAZINE HCL (IM) 25 MG/ML VIAL IM ONE (21:26)
[2022-01-31] MEDS ORDERED: ZOLPIDEM TARTRATE 5 MG TAB PO PRN (22:15)
[2022-01-31] MEDS ORDERED: HYDROCODONE/APAP 5MG-325MG TAB PO ONE (22:15)
[2022-01-31] MEDS: DIPHENHYDRAMINE HCL INJ 50 MG/ML VIAL IV PRN (22:20)
[2022-01-31] MEDS ORDERED: HYDROCODONE/APAP 5MG-325MG TAB ONE (22:27)
[2022-01-31] MEDS ORDERED: DIPHENHYDRAMINE HCL INJ 50 MG/ML VIAL ONE (22:27)
[2022-01-31] MEDS ORDERED: DEXTROSE 50% SYRINGE 50 ML IV PRN (22:30)
[2022-01-31] MEDS: SODIUM CHLORIDE 0.9% 1000ML 1,000 ML IV SCH (23:05)
[2022-01-31] MEDS ORDERED: IOPAMIDOL 370 MG/ML 100 ML INFUS..BTL INJ ONE (23:26)
[2022-02-01] MEDS: Morphine 2mg Syringe 2 MG/ML SYR IV PRN ×3 (00:07→11:41)
[2022-02-01] MEDS ORDERED: Morphine 4mg INJECTION 4 MG/ML INJ ONE ×2 (00:18→10:25)
[2022-02-01 01:45] LABS: ALBUMIN 3.2 g/dL (3.5-5.0); ALBUMIN/GLOBULIN RATIO 1.1 (0.8-2.0); CALCIUM 7.2 mg/dL (8.4-10.2); CREATININE, SERUM 0.68 mg/dL (0.57-1.11)
[2022-02-01 02:15] LABS: CREATINE KINASE 277 IU/L (29-168)
[2022-02-01] MEDS ORDERED: POTASSIUM CHLORIDE 20MEQ/100ML 100 ML IV ONE (02:45)
[2022-02-01] MEDS ORDERED: POTASSIUM CHLORIDE 20MEQ/100ML 100 ML ONE (03:05)
[2022-02-01] MEDS: ONDANSETRON HCL INJ 2MG/ML 2ML 2 MG/ML VIAL IV PRN ×2 (04:23→11:41)
[2022-02-01] MEDS: SODIUM CHLORIDE 0.9% 1000ML 1,000 ML IV SCH (06:15)
[2022-02-01 06:48] LABS: BASOPHILS % 0.5 % (0.0-1.0); EOSINOPHILS % 0.5 % (0.0-6.0); HEMATOCRIT 27.5 % (34.2-44.1); HEMOGLOBIN 9.7 g/dL (12.0-16.0); LYMPHOCYTES # (AUTO) 1.1 (1.0-3.2); LYMPHOCYTES % 18.8 % (18.0-39.1); MEAN CORPUSCULAR HEMOGLOBIN 29.4 pg (28-32); MEAN CORPUSCULAR HGB CONC 35.3 g/dL (31-35); MEAN CORPUSCULAR VOLUME 83.3 fL (81-99); MONOCYTES # (AUTO) 0.5 (0.2-0.8); MONOCYTES % 8.7 % (4.4-11.3); PLATELET COUNT 242 x10e3/uL (140-360); RED CELL DISTRIBUTION WIDTH 12.6 % (11.7-14.4)
[2022-02-01] MEDS: INSULIN REGULAR, HUMAN 100 UNIT/1 ML SQ SCH ×4 (07:30→21:00)
[2022-02-01 07:32] LABS: ANION GAP 15.3 mmol/L (8-16); CREATININE, SERUM 0.67 mg/dL (0.57-1.11); POTASSIUM 3.3 mmol/L (3.5-5.1)
[2022-02-01 07:42] LABS: CALCIUM 6.8 mg/dL (8.4-10.2)
[2022-02-01] MEDS: FAMOTIDINE 20 MG/2 ML VIAL IV SCH ×2 (09:00→17:06)
[2022-02-01] MEDS: AMLODIPINE BESYLATE 5 MG TAB PO SCH (09:00)
[2022-02-01] MEDS: DIPHENHYDRAMINE HCL INJ 50 MG/ML VIAL IV PRN (11:41)
[2022-02-01] MEDS ORDERED: POTASSIUM CHLORIDE 20MEQ/100ML 200 ML IV ONE (13:00)
[2022-02-01] MEDS ORDERED: MAGNESIUM SULFATE 2GM/50ML 50 ML IV ONE ×3 (13:00→20:00)
[2022-02-01 14:29] LABS: CLARITY,URINE CLEAR (CLEAR); COLOR,URINE YELLOW (YELLOW)
[2022-02-01 14:30] LABS: KETONES,URINE TRACE (NEGATIVE); LEUKOCYTE ESTERASE ,URINE NEGATIVE (NEGATIVE); NITRITE,URINE NEGATIVE (NEGATIVE); PROTEIN,URINE DIPSTICK NEGATIVE (NEGATIVE); URINE UROBILINOGEN 0.2 mg/dL (0.2 - 1)
[2022-02-01 14:32] LABS: BACTERIA,URINE FEW /HPF; EPITHELIAL CELLS,URINE FEW /LPF
[2022-02-01] MEDS: KCL 20MEQ/.9 SOD CHL 1,000 ML IV SCH ×2 (14:39→22:53)
[2022-02-01] MEDS ORDERED: ACETAMINOPHEN 325 MG TAB PO ONE (15:30)
[2022-02-01] MEDS ORDERED: ACETAMINOPHEN 325 MG TAB PO PRN (15:30)
[2022-02-01 15:50] VITALS: BP 124/68
[2022-02-01 16:00] VITALS: BP 124/68
[2022-02-01 18:40] LABS: FREE THYROXINE INDEX 2.6662 (1.4-3.8); THYROID STIMULATING HORMONE 1.343 uIU/mL (0.350-4.940)
[2022-02-01 20:00] VITALS: BP 111/54
[2022-02-01] MEDS ORDERED: ATORVASTATIN 20 MG TAB PO SCH (21:00)
[2022-02-02] VITALS (9 sets, daily range): BP systolic 107–128; BP diastolic 58–81
[2022-02-02] MEDS: KCL 20MEQ/.9 SOD CHL 1,000 ML IV SCH ×3 (05:00→20:25)
[2022-02-02 06:54] LABS: BASOPHILS % 0.8 % (0.0-1.0); EOSINOPHILS % 0.8 % (0.0-6.0); HEMATOCRIT 28.8 % (34.2-44.1); HEMOGLOBIN 9.8 g/dL (12.0-16.0); MEAN CORPUSCULAR HEMOGLOBIN 29.3 pg (28-32); MONOCYTES # (AUTO) 0.6 (0.2-0.8); MONOCYTES % 11.3 % (4.4-11.3); NEUTROPHILS # (AUTO) 3.4 (2.1-6.9); NEUTROPHILS % 67.5 % (38.7-80.0); PLATELET COUNT 246 x10e3/uL (140-360); RED BLOOD COUNT 3.35 x10e6/uL (3.6-5.1); RED CELL DISTRIBUTION WIDTH 13.2 % (11.7-14.4)
[2022-02-02 07:22] LABS: ALBUMIN 2.7 g/dL (3.5-5.0); ANION GAP 11.8 mmol/L (8-16); CREATININE, SERUM 0.83 mg/dL (0.57-1.11); POTASSIUM 4.8 mmol/L (3.5-5.1)
[2022-02-02] MEDS: INSULIN REGULAR, HUMAN 100 UNIT/1 ML SQ SCH ×4 (07:30→20:25)
[2022-02-02] MEDS: AMLODIPINE BESYLATE 5 MG TAB PO SCH (09:36)
[2022-02-02] MEDS: FAMOTIDINE 20 MG/2 ML VIAL IV SCH ×2 (09:36→17:27)
[2022-02-02] MEDS: SODIUM BICARBONATE 650 MG TAB PO SCH ×2 (09:47→17:27)
[2022-02-03] VITALS (8 sets, daily range): BP systolic 108–149; BP diastolic 55–73
[2022-02-03] MEDS ORDERED: MAGNESIUM SULFATE 2GM/50ML 50 ML IV ONE ×2 (05:30→09:00)
[2022-02-03] MEDS ORDERED: SODIUM CHLORIDE FLUSH 10 ML SYR INJ PRN (05:45)
[2022-02-03 06:11] LABS: ANION GAP 11.7 mmol/L (8-16); CALCIUM 7.5 mg/dL (8.4-10.2); CREATININE, SERUM 0.73 mg/dL (0.57-1.11); POTASSIUM 4.7 mmol/L (3.5-5.1)
[2022-02-03] MEDS: INSULIN REGULAR, HUMAN 100 UNIT/1 ML SQ SCH ×4 (07:30→21:00)
[2022-02-03] MEDS: FAMOTIDINE 20 MG/2 ML VIAL IV SCH ×2 (10:07→17:15)
[2022-02-03] MEDS: AMLODIPINE BESYLATE 5 MG TAB PO SCH (10:08)
[2022-02-03] MEDS: SODIUM BICARBONATE 650 MG TAB PO SCH ×2 (10:08→17:15)
[2022-02-04] VITALS: BP 149/71
[2022-02-04 04:00] VITALS: BP 156/78
[2022-02-12] MEDS ORDERED: NEXIUM20 MG PO (19:35)
[2022-02-12] MEDS ORDERED: TEMAZEPAM15 MG PO (19:35)
== END 2022-02-04 07:22 | disposition home or self-care (01) | DRG 392 ==
LOC: FSED 20:15 → ERHOLD 22:16 → MED/SURG 02-01 15:59 → OBSVTOIN 02-02 08:53
PROVIDERS: ADMIT Internal Medicine; ATTEND Internal Medicine
DX: K52.9 Noninfective gastroenteritis and colitis, unspecified (principal); E87.1 Hypo-osmolality and hyponatremia; E11.9 Type 2 diabetes mellitus without complications; E78.5 Hyperlipidemia, unspecified; I10 Essential (primary) hypertension; Z20.822 Contact with and (suspected) exposure to COVID-19; E86.0 Dehydration; E87.8 Other disorders of electrolyte and fluid balance, not elsewhere classified; D64.9 Anemia, unspecified; E87.6 Hypokalemia
CPT/HCPCS: 36415; 74022; 74177; 80048; 80053; 81001; 81003; 82550; 82553; 82948; 83735; 84300; 84436; 84443; 84479; 84484; 85025; 87086; 93005; 96374; 96375; 99284; 99285; G0378; J1200; J1817; J2270; J2405; J2543; J2550; J3475; J3480; J7030; Q9967

== ENCOUNTER → 2022-11-19 | Day surgery (SDC) | payer MEDICARE ==
[2022-11-15 14:02] LABS: BASOPHILS % 0.2 % (0.0-1.0); EOSINOPHILS % 0.5 % (0.0-6.0); HEMATOCRIT 33.4 % (34.2-44.1); HEMOGLOBIN 10.7 g/dL (12.0-16.0); LYMPHOCYTES # (AUTO) 1.1 (1.0-3.2); LYMPHOCYTES % 20.4 % (18.0-39.1); MEAN CORPUSCULAR HEMOGLOBIN 28.9 pg (28-32); MEAN CORPUSCULAR VOLUME 90.3 fL (81-99); MONOCYTES # (AUTO) 0.4 (0.2-0.8); MONOCYTES % 6.7 % (4.4-11.3); NEUTROPHILS # (AUTO) 3.9 (2.1-6.9); NEUTROPHILS % 71.5 % (38.7-80.0); PLATELET COUNT 308 x10e3/uL (140-360); RED CELL DISTRIBUTION WIDTH 12.7 % (11.7-14.4)
[2022-11-15 14:19] LABS: ANION GAP 16.1 mmol/L (8-16); CALCIUM 9.1 mg/dL (8.4-10.2); CREATININE, SERUM 1.21 mg/dL (0.57-1.11); POTASSIUM 4.1 mmol/L (3.5-5.1)
[~2022-11-19] MED LIST changes: +ACETAMINOPHEN 1000 MG/100 ML 100 ML IV ONE; +BUPIVACAINE HCL 0.5% 10ML MPF VIAL INJ ONE; +CEFAZOLIN SODIUM 2 GM ONE; +FENTANYL CITRATE/PF 100MCG/2 ML INJ IV ONE; +FENTANYL CITRATE/PF 100MCG/2 ML INJ ONE; +GENTAMICIN SULFATE 40 MG/ML 2 ML VIAL ONE; +LACTATED RINGER'S 1,000 ML ONE; +LEVOFLOXACIN250 MG PO; +LIDOCAINE HCL 2% LOCAL INJ 5 ML SDV VIAL INJ ONE; +MAGNESIUM OXID400 MG PO; +MUPIROCIN 2% OINT 22 GM TUBE ONE; +NEXIUM20 MG PO; +ONDANSETRON HCL INJ 2MG/ML 2ML 2 MG/ML VIAL IV ONE; +ONDANSETRON HCL INJ 2MG/ML 2ML 2 MG/ML VIAL ONE; +POVIDONE IODINE 0.05% 0.05 % ML PO ONE; +PROPOFOL IV EMULSION 10 MG/ML 20 ML VIAL ONE; +SEVOFLURANE INHAL SOLN 250 ML PEN BTL ONE; +SODIUM CHLORIDE1 GM PO; +TEMAZEPAM15 MG PO
[2022-11-19 11:40] VITALS: BP 144/66
== END | disposition home or self-care (01) ==
LOC: OR 08:12
PROVIDERS: ATTEND Podiatrist Foot & Ankle Surgery
DX: E11.52 Type 2 diabetes mellitus with diabetic peripheral angiopathy with gangrene (principal); I96 Gangrene, not elsewhere classified; E11.69 Type 2 diabetes mellitus with other specified complication; M86.172 Other acute osteomyelitis, left ankle and foot; E11.621 Type 2 diabetes mellitus with foot ulcer; E11.40 Type 2 diabetes mellitus with diabetic neuropathy, unspecified; Z01.810 Encounter for preprocedural cardiovascular examination; Z01.812 Encounter for preprocedural laboratory examination; Z01.818 Encounter for other preprocedural examination; Z79.84 Long term (current) use of oral hypoglycemic drugs; Z79.899 Other long term (current) drug therapy
CPT/HCPCS: 11044; 36415 ×2; 71046; 80048; 82948; 85025; 87071; 87075; 87186; 87205; 88304; 88311; 93005; J0131; J2001; J2405; J2704; J3010; J7121; Q4104; J1580

== ENCOUNTER 2022-12-18 18:47 | Inpatient (IN) | payer MEDICARE ==
[~2022-12-18] VITALS: Ht 149.9 cm; Wt 51.4 kg
[~2022-12-18 18:47] MED LIST changes: -ACETAMINOPHEN 1000 MG/100 ML 100 ML IV ONE; -BUPIVACAINE HCL 0.5% 10ML MPF VIAL INJ ONE; -CEFAZOLIN SODIUM 2 GM ONE; -FENTANYL CITRATE/PF 100MCG/2 ML INJ IV ONE; -FENTANYL CITRATE/PF 100MCG/2 ML INJ ONE; -GENTAMICIN SULFATE 40 MG/ML 2 ML VIAL ONE; -LACTATED RINGER'S 1,000 ML ONE; -LIDOCAINE HCL 2% LOCAL INJ 5 ML SDV VIAL INJ ONE; -MUPIROCIN 2% OINT 22 GM TUBE ONE; -ONDANSETRON HCL INJ 2MG/ML 2ML 2 MG/ML VIAL IV ONE; -ONDANSETRON HCL INJ 2MG/ML 2ML 2 MG/ML VIAL ONE; -POVIDONE IODINE 0.05% 0.05 % ML PO ONE; -PROPOFOL IV EMULSION 10 MG/ML 20 ML VIAL ONE; -SEVOFLURANE INHAL SOLN 250 ML PEN BTL ONE
[2022-12-18] MEDS ORDERED: ONDANSETRON HCL INJ 2MG/ML 2ML 2 MG/ML VIAL IV STA (19:08)
[2022-12-18] MEDS ORDERED: SODIUM CHLORIDE FLUSH 10 ML SYR IV PRN (19:09)
[2022-12-18] MEDS ORDERED: SODIUM CHLORIDE 0.9% 1000ML 1,000 ML IV ONE (19:15)
[2022-12-18 19:32] LABS: BASOPHILS % 0.4 % (0.0-1.0); EOSINOPHILS % 0.4 % (0.0-6.0); HEMATOCRIT 29.2 % (34.2-44.1); HEMOGLOBIN 10.2 g/dL (12.0-16.0); LYMPHOCYTES % 14.4 % (18.0-39.1); MEAN CORPUSCULAR HEMOGLOBIN 28.6 pg (28-32); MEAN CORPUSCULAR HGB CONC 34.9 g/dL (31-35); MEAN CORPUSCULAR VOLUME 81.8 fL (81-99); MONOCYTES # (AUTO) 0.5 (0.2-0.8); NEUTROPHILS # (AUTO) 5.4 (2.1-6.9); NEUTROPHILS % 77.2 % (38.7-80.0); PLATELET COUNT 287 x10e3/uL (140-360); RED BLOOD COUNT 3.57 x10e6/uL (3.6-5.1)
[2022-12-18 19:39] LABS: AMPHETAMINES SCREEN,URINE NEGATIVE (NEGATIVE); BENZODIAZEPINES SCREEN,URINE NEGATIVE (NEGATIVE); CLARITY,URINE SL CLOUDY (CLEAR); COLOR,URINE YELLOW (YELLOW); KETONES,URINE NEGATIVE (NEGATIVE); LEUKOCYTE ESTERASE ,URINE NEGATIVE (NEGATIVE); NITRITE,URINE NEGATIVE (NEGATIVE); PHENCYCLIDINE SCREEN,URINE NEGATIVE (NEGATIVE); PROTEIN,URINE DIPSTICK 1+ (NEGATIVE)
[2022-12-18 19:40] LABS: URINE UROBILINOGEN 0.2 mg/dL (0.2 - 1)
[2022-12-18 19:42] LABS: INR 0.96; PROTHROMBIN TIME 13.3 seconds (11.9-14.5)
[2022-12-18 19:43] LABS: PARTIAL THROMBOPLASTIN TIME 35.4 seconds (23.8-35.5)
[2022-12-18 19:45] LABS: BACTERIA,URINE FEW /HPF; EPITHELIAL CELLS,URINE MODERATE /LPF; RBC,URINE 0-5 /HPF (0-5); RENAL EPITHELIAL CELLS,URINE MODERATE
[2022-12-18 19:53] LABS: ALBUMIN 3.7 g/dL (3.5-5.0); ALBUMIN/GLOBULIN RATIO 1.1 (0.8-2.0); ANION GAP 11.9 mmol/L (8-16); CALCIUM 8.9 mg/dL (8.4-10.2); CREATININE, SERUM 0.79 mg/dL (0.57-1.11); POTASSIUM 3.9 mmol/L (3.5-5.1)
[2022-12-18] MEDS ORDERED: IOPAMIDOL 370 MG/ML 100 ML INFUS..BTL INJ ONE (19:56)
[2022-12-18] MEDS: ONDANSETRON HCL INJ 2MG/ML 2ML 2 MG/ML VIAL IV PRN (23:44)
[2022-12-19] VITALS (10 sets, daily range): BP systolic 129–150; BP diastolic 65–97; PULSE 71–106; RESP 16–20; TEMP 97.1–98.4; O2SAT 94–100
[2022-12-19] MEDS: ACETAMINOPHEN 325 MG TAB PO PRN ×2 (01:46→16:54)
[2022-12-19] MEDS ORDERED: SODIUM CHLORIDE 0.9% 1000ML 1,000 ML IV SCH (04:30)
[2022-12-19] MEDS: METRONIDAZOLE 500MG/NS 100ML 100 ML IV SCH ×3 (05:07→20:40)
[2022-12-19 05:31] LABS: BASOPHILS % 0.6 % (0.0-1.0); EOSINOPHILS % 0.5 % (0.0-6.0); HEMATOCRIT 30.1 % (34.2-44.1); HEMOGLOBIN 10.3 g/dL (12.0-16.0); LYMPHOCYTES # (AUTO) 1.2 (1.0-3.2); MEAN CORPUSCULAR HEMOGLOBIN 29.1 pg (28-32); MEAN CORPUSCULAR HGB CONC 34.2 g/dL (31-35); MONOCYTES # (AUTO) 0.5 (0.2-0.8); MONOCYTES % 7.6 % (4.4-11.3); NEUTROPHILS # (AUTO) 4.7 (2.1-6.9); PLATELET COUNT 282 x10e3/uL (140-360); RED BLOOD COUNT 3.54 x10e6/uL (3.6-5.1)
[2022-12-19 05:52] LABS: ALBUMIN 3.3 g/dL (3.5-5.0); ANION GAP 11.7 mmol/L (8-16); CALCIUM 8.6 mg/dL (8.4-10.2); CREATININE, SERUM 0.73 mg/dL (0.57-1.11); POTASSIUM 3.7 mmol/L (3.5-5.1)
[2022-12-19] MEDS: PANTOPRAZOLE SOD 40 MG TABEC PO SCH (07:30)
[2022-12-19] MEDS: ONDANSETRON HCL INJ 2MG/ML 2ML 2 MG/ML VIAL IV PRN ×3 (07:38→16:40)
[2022-12-19] MEDS: AMLODIPINE BESYLATE 5 MG TAB PO SCH (09:00)
[2022-12-19] MEDS: KCL 20MEQ/.9 SOD CHL 1,000 ML IV SCH ×2 (11:29→20:57)
[2022-12-19] MEDS: ATORVASTATIN 20 MG TAB PO SCH (20:40)
[2022-12-19] MEDS: ZOLPIDEM TARTRATE 5 MG TAB PO PRN (20:59)
[2022-12-20] VITALS (8 sets, daily range): BP systolic 116–153; BP diastolic 69–95; PULSE 69–89; RESP 16–19; TEMP 97.6–99.2; O2SAT 95–100
[2022-12-20] MEDS: METRONIDAZOLE 500MG/NS 100ML 100 ML IV SCH ×3 (05:27→21:54)
[2022-12-20] MEDS: KCL 20MEQ/.9 SOD CHL 1,000 ML IV SCH ×3 (05:27→17:18)
[2022-12-20 05:40] LABS: BASOPHILS % 0.7 % (0.0-1.0); EOSINOPHILS % 0.5 % (0.0-6.0); HEMATOCRIT 27.9 % (34.2-44.1); HEMOGLOBIN 9.7 g/dL (12.0-16.0); LYMPHOCYTES # (AUTO) 1.3 (1.0-3.2); LYMPHOCYTES % 21.9 % (18.0-39.1); MEAN CORPUSCULAR HEMOGLOBIN 28.9 pg (28-32); MEAN CORPUSCULAR HGB CONC 34.8 g/dL (31-35); MONOCYTES # (AUTO) 0.5 (0.2-0.8); MONOCYTES % 8.5 % (4.4-11.3); NEUTROPHILS # (AUTO) 3.9 (2.1-6.9); NEUTROPHILS % 67.9 % (38.7-80.0); PLATELET COUNT 254 x10e3/uL (140-360); RED BLOOD COUNT 3.36 x10e6/uL (3.6-5.1); RED CELL DISTRIBUTION WIDTH 12.2 % (11.7-14.4)
[2022-12-20 06:09] LABS: ALBUMIN 3.3 g/dL (3.5-5.0); ALBUMIN/GLOBULIN RATIO 1.2 (0.8-2.0); ANION GAP 11.6 mmol/L (8-16); CALCIUM 8.2 mg/dL (8.4-10.2); CREATININE, SERUM 0.73 mg/dL (0.57-1.11); POTASSIUM 3.6 mmol/L (3.5-5.1)
[2022-12-20] MEDS: PANTOPRAZOLE SOD 40 MG TABEC PO SCH (08:30)
[2022-12-20] MEDS: AMLODIPINE BESYLATE 5 MG TAB PO SCH (09:38)
[2022-12-20] MEDS: LUBIPROSTONE 24 MCG CAP PO SCH ×2 (17:00→17:17)
[2022-12-20] MEDS: ATORVASTATIN 20 MG TAB PO SCH (21:54)
[2022-12-20] MEDS: ZOLPIDEM TARTRATE 5 MG TAB PO PRN (21:58)
[2022-12-21] VITALS (8 sets, daily range): BP systolic 127–140; BP diastolic 57–69; PULSE 72–91; RESP 17–18; TEMP 97.9–98.3; O2SAT 97–100
[2022-12-21] MEDS: KCL 20MEQ/.9 SOD CHL 1,000 ML IV SCH ×2 (01:45→12:31)
[2022-12-21] MEDS: METRONIDAZOLE 500MG/NS 100ML 100 ML IV SCH ×3 (06:27→20:58)
[2022-12-21] MEDS: LUBIPROSTONE 24 MCG CAP PO SCH ×2 (08:00→16:22)
[2022-12-21] MEDS: PANTOPRAZOLE SOD 40 MG TABEC PO SCH (08:20)
[2022-12-21] MEDS: AMLODIPINE BESYLATE 5 MG TAB PO SCH (08:46)
[2022-12-21 09:37] LABS: BASOPHILS # (AUTO) 0.1 (0.0-0.1); BASOPHILS % 0.6 % (0.0-1.0); EOSINOPHILS # (AUTO) 0.1 (0.0-0.4); EOSINOPHILS % 1.2 % (0.0-6.0); HEMATOCRIT 30.7 % (34.2-44.1); HEMOGLOBIN 10.3 g/dL (12.0-16.0); LYMPHOCYTES # (AUTO) 1.8 (1.0-3.2); LYMPHOCYTES % 22.3 % (18.0-39.1); MEAN CORPUSCULAR HEMOGLOBIN 28.6 pg (28-32); MEAN CORPUSCULAR HGB CONC 33.6 g/dL (31-35); MEAN CORPUSCULAR VOLUME 85.3 fL (81-99); MONOCYTES # (AUTO) 0.7 (0.2-0.8); MONOCYTES % 8.7 % (4.4-11.3); NEUTROPHILS # (AUTO) 5.5 (2.1-6.9); NEUTROPHILS % 66.7 % (38.7-80.0); PLATELET COUNT 292 x10e3/uL (140-360); RED CELL DISTRIBUTION WIDTH 12.7 % (11.7-14.4)
[2022-12-21 09:58] LABS: ANION GAP 11.1 mmol/L (8-16); CALCIUM 8.5 mg/dL (8.4-10.2); CREATININE, SERUM 0.84 mg/dL (0.57-1.11); POTASSIUM 4.1 mmol/L (3.5-5.1)
[2022-12-21] MEDS ORDERED: FAMOTIDINE 20 MG TAB PO ONE (17:00)
[2022-12-21] MEDS: SODIUM CHLORIDE 452MG TAB PO SCH (17:18)
[2022-12-21] MEDS: ATORVASTATIN 20 MG TAB PO SCH (20:58)
[2022-12-21] MEDS: ZOLPIDEM TARTRATE 5 MG TAB PO PRN (22:52)
[2022-12-22] VITALS (7 sets, daily range): BP systolic 133–156; BP diastolic 61–75; PULSE 67–86; RESP 17–20; TEMP 97.9–98.4; O2SAT 96–100
[2022-12-22] MEDS: METRONIDAZOLE 500MG/NS 100ML 100 ML IV SCH ×3 (05:15→21:00)
[2022-12-22 07:02] LABS: ANION GAP 9.7 mmol/L (8-16); CALCIUM 8.1 mg/dL (8.4-10.2); CREATININE, SERUM 0.74 mg/dL (0.57-1.11); POTASSIUM 3.7 mmol/L (3.5-5.1)
[2022-12-22] MEDS: LUBIPROSTONE 24 MCG CAP PO SCH (08:00)
[2022-12-22] MEDS: SODIUM CHLORIDE 452MG TAB PO SCH ×2 (08:34→16:02)
[2022-12-22] MEDS: AMLODIPINE BESYLATE 5 MG TAB PO SCH (08:34)
[2022-12-22] MEDS: ATORVASTATIN 20 MG TAB PO SCH (21:00)
[2022-12-22] MEDS: ZOLPIDEM TARTRATE 5 MG TAB PO PRN (22:54)
[2022-12-23] VITALS (7 sets, daily range): BP systolic 124–145; BP diastolic 62–83; PULSE 71–87; RESP 16–18; TEMP 97.6–98.4; O2SAT 98–100
[2022-12-23] MEDS: METRONIDAZOLE 500MG/NS 100ML 100 ML IV SCH ×3 (05:37→21:30)
[2022-12-23 05:40] LABS: BASOPHILS # (AUTO) 0.1 (0.0-0.1); BASOPHILS % 0.9 % (0.0-1.0); EOSINOPHILS # (AUTO) 0.1 (0.0-0.4); EOSINOPHILS % 0.9 % (0.0-6.0); HEMATOCRIT 27.1 % (34.2-44.1); HEMOGLOBIN 9.4 g/dL (12.0-16.0); LYMPHOCYTES # (AUTO) 1.5 (1.0-3.2); LYMPHOCYTES % 25.8 % (18.0-39.1); MEAN CORPUSCULAR HEMOGLOBIN 28.7 pg (28-32); MEAN CORPUSCULAR HGB CONC 34.7 g/dL (31-35); MEAN CORPUSCULAR VOLUME 82.6 fL (81-99); MONOCYTES # (AUTO) 0.5 (0.2-0.8); MONOCYTES % 7.9 % (4.4-11.3); NEUTROPHILS # (AUTO) 3.7 (2.1-6.9); NEUTROPHILS % 64.3 % (38.7-80.0); PLATELET COUNT 306 x10e3/uL (140-360); RED BLOOD COUNT 3.28 x10e6/uL (3.6-5.1); RED CELL DISTRIBUTION WIDTH 12.2 % (11.7-14.4)
[2022-12-23 06:07] LABS: ALBUMIN 3.4 g/dL (3.5-5.0); ALBUMIN/GLOBULIN RATIO 1.2 (0.8-2.0); ANION GAP 11.6 mmol/L (8-16); CALCIUM 8.7 mg/dL (8.4-10.2); CREATININE, SERUM 0.71 mg/dL (0.57-1.11); POTASSIUM 3.6 mmol/L (3.5-5.1)
[2022-12-23] MEDS: SODIUM CHLORIDE 452MG TAB PO SCH (08:21)
[2022-12-23] MEDS: AMLODIPINE BESYLATE 5 MG TAB PO SCH (08:22)
[2022-12-23] MEDS ORDERED: FUROSEMIDE 20 MG TAB PO ONE (11:50)
[2022-12-23] MEDS ORDERED: SODIUM CHLORIDE 0.9% 250ML 250 ML ONE (13:43)
[2022-12-23] MEDS: SODIUM CHLORIDE 1 GM TAB PO SCH ×2 (15:09→21:29)
[2022-12-23] MEDS: ATORVASTATIN 20 MG TAB PO SCH (21:29)
[2022-12-23] MEDS: ZOLPIDEM TARTRATE 5 MG TAB PO PRN (23:20)
[2022-12-24] VITALS: BP 130/60; PULSE 81; RESP 18; TEMP 98.6; O2SAT 100
[2022-12-24 06:01] LABS: BASOPHILS # (AUTO) 0.1 (0.0-0.1); BASOPHILS % 0.9 % (0.0-1.0); EOSINOPHILS % 0.5 % (0.0-6.0); HEMATOCRIT 27.1 % (34.2-44.1); HEMOGLOBIN 9.2 g/dL (12.0-16.0); LYMPHOCYTES # (AUTO) 1.6 (1.0-3.2); LYMPHOCYTES % 28.9 % (18.0-39.1); MEAN CORPUSCULAR HEMOGLOBIN 28.5 pg (28-32); MEAN CORPUSCULAR HGB CONC 33.9 g/dL (31-35); MEAN CORPUSCULAR VOLUME 83.9 fL (81-99); MONOCYTES # (AUTO) 0.5 (0.2-0.8); MONOCYTES % 8.9 % (4.4-11.3); NEUTROPHILS # (AUTO) 3.4 (2.1-6.9); NEUTROPHILS % 60.4 % (38.7-80.0); PLATELET COUNT 306 x10e3/uL (140-360); RED BLOOD COUNT 3.23 x10e6/uL (3.6-5.1); RED CELL DISTRIBUTION WIDTH 12.6 % (11.7-14.4)
[2022-12-24] MEDS: METRONIDAZOLE 500MG/NS 100ML 100 ML IV SCH (06:26)
[2022-12-24 06:42] LABS: ALBUMIN 3.2 g/dL (3.5-5.0); ALBUMIN/GLOBULIN RATIO 1.1 (0.8-2.0); CALCIUM 8.8 mg/dL (8.4-10.2); CREATININE, SERUM 0.86 mg/dL (0.57-1.11)
[2022-12-24 08:00] VITALS: BP 142/78; PULSE 80; RESP 18; TEMP 98.3; O2SAT 100
[2022-12-24 09:00] VITALS: BP 142/78; PULSE 80; RESP 18; TEMP 98.3; O2SAT 100
[2022-12-24] MEDS: AMLODIPINE BESYLATE 5 MG TAB PO SCH (09:01)
[2022-12-24] MEDS: SODIUM CHLORIDE 1 GM TAB PO SCH (09:02)
== END 2022-12-24 11:48 | disposition home or self-care (01) | DRG 392 ==
LOC: ER 18:55 → ERHOLD 21:48 → MED/SURG3 22:51
PROVIDERS: ADMIT Internal Medicine; ATTEND Internal Medicine
DX: K52.9 Noninfective gastroenteritis and colitis, unspecified (principal); E22.2 Syndrome of inappropriate secretion of antidiuretic hormone; I10 Essential (primary) hypertension; E11.9 Type 2 diabetes mellitus without complications; E27.9 Disorder of adrenal gland, unspecified; K21.9 Gastro-esophageal reflux disease without esophagitis; E78.00 Pure hypercholesterolemia, unspecified; D64.9 Anemia, unspecified; Z87.891 Personal history of nicotine dependence; Z79.84 Long term (current) use of oral hypoglycemic drugs; Z20.822 Contact with and (suspected) exposure to COVID-19
CPT/HCPCS: 0223U; 36415; 71045; 74177; 80048; 80053; 80307; 81001; 82948; 83690; 83735; 83935; 84300; 84443; 84484; 84550; 85025; 85610; 85730; 93005; 99284; J2405; J7030; J7050; Q9967

== ENCOUNTER 2023-12-21 09:13 | Inpatient (IN) | payer MEDICARE ==
[2023-12-21] VITALS (19 sets, daily range): BP systolic 96–140; BP diastolic 49–96; PULSE 56–103; RESP 12–29; TEMP 97.6–98; O2SAT 92–100
[~2023-12-21] VITALS: Ht 147.3 cm; Wt 54.4 kg
[2023-12-21] MEDS: SODIUM CHLORIDE 0.9% 1000ML 1,000 ML IV STA (09:48)
[2023-12-21 09:56] LABS: BASOPHILS % 0.5 % (0.0-1.0); EOSINOPHILS # (AUTO) 0.1 (0.0-0.4); EOSINOPHILS % 1.4 % (0.0-6.0); HEMOGLOBIN 11.4 g/dL (12.0-16.0); LYMPHOCYTES # (AUTO) 1.3 (1.0-3.2); LYMPHOCYTES % 22.2 % (18.0-39.1); MEAN CORPUSCULAR HEMOGLOBIN 29.2 pg (28-32); MEAN CORPUSCULAR VOLUME 76.7 fL (81-99); MONOCYTES # (AUTO) 0.6 (0.2-0.8); MONOCYTES % 10.2 % (4.4-11.3); NEUTROPHILS # (AUTO) 3.9 (2.1-6.9); NEUTROPHILS % 65.4 % (38.7-80.0); PLATELET COUNT 254 x10e3/uL (140-360); RED BLOOD COUNT 3.91 x10e6/uL (3.6-5.1); RED CELL DISTRIBUTION WIDTH 12.1 % (11.7-14.4)
[2023-12-21] MEDS: ONDANSETRON HCL INJ 2MG/ML 2ML 2 MG/ML VIAL IV STA (10:02)
[2023-12-21 10:05] LABS: INR 1.07; PROTHROMBIN TIME 14.6 seconds (11.9-14.5)
[2023-12-21 10:06] LABS: PARTIAL THROMBOPLASTIN TIME 34.5 seconds (23.8-35.5)
[2023-12-21 10:11] LABS: ALANINE AMINOTRANSFERASE 22 IU/L (0-55); ALBUMIN 3.4 g/dL (3.5-5.0); ALBUMIN/GLOBULIN RATIO 1.1 (0.8-2.0); ALKALINE PHOSPHATASE 53 IU/L (40-150); ANION GAP 15.2 mmol/L (8-16); BILIRUBIN,TOTAL 0.6 mg/dL (0.2-1.2); BLOOD UREA NITROGEN < 5 mg/dL (7-26); CALCIUM 8.6 mg/dL (8.4-10.2); CARBON DIOXIDE 17 mmol/L (22-29); CHLORIDE 81 mmol/L (98-107); CREATININE, SERUM 0.56 mg/dL (0.57-1.11); EST GLOMERULAR FILTRATION RATE 94 ML/MIN (>=60); GLUCOSE 126 mg/dL (74-118); LIPASE 46 U/L (8-78); MAGNESIUM 1.2 MG/DL (1.3-2.1); TOTAL PROTEIN 6.4 g/dL (6.5-8.1)
[2023-12-21 10:12] LABS: BUN/CREATININE RATIO 9 (6-25); POTASSIUM 3.2 mmol/L (3.5-5.1)
[2023-12-21 10:13] LABS: SODIUM 110 mmol/L (136-145)
[2023-12-21 10:17] LABS: TROPONIN I 0.004 ng/mL (0-0.300)
[2023-12-21] MEDS: Morphine 2mg Syringe 2 MG/ML SYR IV STA (10:20)
[2023-12-21] MEDS ORDERED: IOPAMIDOL 370 MG/ML 100 ML INFUS..BTL INJ ONE (10:28)
[2023-12-21] MEDS: MAGNESIUM SULFATE 2GM/50ML 50 ML IV ONE (11:00)
[2023-12-21] MEDS ORDERED: ONDANSETRON HCL INJ 2MG/ML 2ML 2 MG/ML VIAL IV PRN (11:30)
[2023-12-21 11:37] LABS: CREATINE KINASE 243 IU/L (29-168)
[2023-12-21 12:11] LABS: CLARITY,URINE CLEAR (CLEAR); COLOR,URINE YELLOW (YELLOW)
[2023-12-21 12:12] LABS: BACTERIA,URINE FEW /HPF; BILIRUBIN,URINE NEGATIVE (NEGATIVE); EPITHELIAL CELLS,URINE FEW /LPF; GLUCOSE, URINE NEGATIVE (NEGATIVE); KETONES,URINE 2+ (NEGATIVE); LEUKOCYTE ESTERASE ,URINE NEGATIVE (NEGATIVE); NITRITE,URINE NEGATIVE (NEGATIVE); PH,URINE 6.5 (5 - 7); PROTEIN,URINE DIPSTICK 1+ (NEGATIVE); RBC,URINE 0-5 /HPF (0-5); URINE UROBILINOGEN 0.2 mg/dL (0.2 - 1)
[2023-12-21] MEDS: KCL 40MEQ/0.9% SOD CHL 1,000 ML IV ONE (12:13)
[2023-12-21] MEDS: DIAZEPAM INJ 5 MG/ML 2 ML IV ONE (12:35)
[2023-12-21 12:48] LABS: BLOOD UREA NITROGEN 6 mg/dL (7-26); GLUCOSE 116 mg/dL (74-118); OSMOLALITY,SERUM 228 mOsm/kg (278-305)
[2023-12-21 12:52] LABS: SODIUM 113 mmol/L (136-145)
[2023-12-21] MEDS: ONDANSETRON HCL INJ 2MG/ML 2ML 2 MG/ML VIAL IV PRN (13:59)
[2023-12-21] MEDS: Morphine 2mg Syringe 2 MG/ML SYR IV PRN (14:00)
[2023-12-21] MEDS: SODIUM CHLORIDE 0.9% 1000ML 1,000 ML IV SCH (14:00)
[2023-12-21 14:07] LABS: ANION GAP 15.4 mmol/L (8-16); CALCIUM 7.1 mg/dL (8.4-10.2); CREATININE, SERUM 0.78 mg/dL (0.57-1.11)
[2023-12-21 14:14] LABS: POTASSIUM 3.4 mmol/L (3.5-5.1)
[2023-12-21 14:44] LABS: TROPONIN I 0.019 ng/mL (0-0.300)
[2023-12-21] MEDS: SODIUM BICARBONATE 650 MG TAB PO SCH (18:10)
[2023-12-21] MEDS: MELATONIN 3 MG TAB PO SCH (21:00)
[2023-12-21] MEDS: ATORVASTATIN 10 MG TAB PO SCH (21:00)
[2023-12-21] MEDS: PROMETHAZINE 12.5MG/ NACL 0.9% 12.5 MG/50 ML BAG IV PRN (21:51)
[2023-12-22] VITALS (22 sets, daily range): BP systolic 97–140; BP diastolic 51–84; PULSE 68–104; RESP 10–24; TEMP 97.3–98.4; O2SAT 90–100
[2023-12-22 06:07] LABS: BASOPHILS % 0.4 % (0.0-1.0); EOSINOPHILS # (AUTO) 0.1 (0.0-0.4); EOSINOPHILS % 1.3 % (0.0-6.0); HEMOGLOBIN 9.6 g/dL (12.0-16.0); LYMPHOCYTES # (AUTO) 0.9 (1.0-3.2); LYMPHOCYTES % 19.5 % (18.0-39.1); MEAN CORPUSCULAR HEMOGLOBIN 28.2 pg (28-32); MEAN CORPUSCULAR HGB CONC 35.6 g/dL (31-35); MEAN CORPUSCULAR VOLUME 79.4 fL (81-99); MONOCYTES # (AUTO) 0.4 (0.2-0.8); MONOCYTES % 8.9 % (4.4-11.3); NEUTROPHILS # (AUTO) 3.2 (2.1-6.9); NEUTROPHILS % 69.5 % (38.7-80.0); PLATELET COUNT 222 x10e3/uL (140-360); RED CELL DISTRIBUTION WIDTH 12.3 % (11.7-14.4); WHITE BLOOD COUNT 4.62 x10e3/uL (4.8-10.8)
[2023-12-22 07:00] LABS: ALBUMIN 2.9 g/dL (3.5-5.0); ALBUMIN/GLOBULIN RATIO 1.1 (0.8-2.0); ANION GAP 13.1 mmol/L (8-16); BILIRUBIN,TOTAL 0.4 mg/dL (0.2-1.2); CALCIUM 7.9 mg/dL (8.4-10.2); CREATININE, SERUM 0.85 mg/dL (0.57-1.11); TOTAL PROTEIN 5.5 g/dL (6.5-8.1)
[2023-12-22 07:01] LABS: POTASSIUM 3.1 mmol/L (3.5-5.1)
[2023-12-22 07:23] LABS: MAGNESIUM 1.8 MG/DL (1.3-2.1); PHOSPHORUS 2.5 MG/DL (2.3-4.7)
[2023-12-22] MEDS: AMLODIPINE BESYLATE 5 MG TAB PO SCH (09:17)
[2023-12-22] MEDS: POTASSIUM CHLORIDE 20MEQ/100ML 100 ML IV SCH (09:19)
[2023-12-22] MEDS: KCL 20MEQ/.9 SOD CHL 1,000 ML IV SCH (09:47)
[2023-12-22] MEDS: SODIUM CHLORIDE 1 GM TAB PO SCH (09:48)
[2023-12-22 12:02] LABS: FREE THYROXINE INDEX 2.8732 (1.4-3.8); T3 UPTAKE 29.56 % (22.5-37.0)
[2023-12-22 12:03] LABS: T4 (THYROXINE) 9.72 ug/dL (4.5-10.9)
[2023-12-22 15:28] LABS: FREE T4 (FREE THYROXINE) 1.19 ng/dL (0.8-1.8); THYROID STIMULATING HORMONE 1.243 uIU/mL (0.350-4.940)
[2023-12-22] MEDS: SODIUM BICARBONATE 650 MG TAB PO SCH (16:17)
[2023-12-23] VITALS (7 sets, daily range): BP systolic 92–144; BP diastolic 62–71; PULSE 71–102; RESP 17–18; TEMP 98.1–99.4; O2SAT 97–100
[2023-12-23 06:18] LABS: EOSINOPHILS # (AUTO) 0.1 (0.0-0.4); EOSINOPHILS % 1.2 % (0.0-6.0); HEMATOCRIT 27.3 % (34.2-44.1); HEMOGLOBIN 9.1 g/dL (12.0-16.0); LYMPHOCYTES # (AUTO) 1.3 (1.0-3.2); LYMPHOCYTES % 31.2 % (18.0-39.1); MEAN CORPUSCULAR HEMOGLOBIN 29.1 pg (28-32); MEAN CORPUSCULAR HGB CONC 33.3 g/dL (31-35); MEAN CORPUSCULAR VOLUME 87.2 fL (81-99); MONOCYTES # (AUTO) 0.5 (0.2-0.8); MONOCYTES % 11.1 % (4.4-11.3); NEUTROPHILS # (AUTO) 2.2 (2.1-6.9); PLATELET COUNT 232 x10e3/uL (140-360); RED BLOOD COUNT 3.13 x10e6/uL (3.6-5.1); RED CELL DISTRIBUTION WIDTH 13.3 % (11.7-14.4); WHITE BLOOD COUNT 4.07 x10e3/uL (4.8-10.8)
[2023-12-23 06:39] LABS: ALBUMIN 2.5 g/dL (3.5-5.0); ANION GAP 10.4 mmol/L (8-16); BILIRUBIN,TOTAL 0.3 mg/dL (0.2-1.2); CALCIUM 7.7 mg/dL (8.4-10.2); CREATININE, SERUM 0.94 mg/dL (0.57-1.11); MAGNESIUM 1.8 MG/DL (1.3-2.1); POTASSIUM 4.4 mmol/L (3.5-5.1)
[2023-12-23] MEDS: BUMETANIDE 1 MG TAB PO SCH (09:42)
[2023-12-24] VITALS (8 sets, daily range): BP systolic 123–140; BP diastolic 62–77; PULSE 79–92; RESP 17–18; TEMP 98.3–100.1; O2SAT 100
[2023-12-24 06:21] LABS: BASOPHILS % 0.3 % (0.0-1.0); EOSINOPHILS # (AUTO) 0.1 (0.0-0.4); EOSINOPHILS % 1.1 % (0.0-6.0); HEMATOCRIT 23.4 % (34.2-44.1); HEMOGLOBIN 8.4 g/dL (12.0-16.0); LYMPHOCYTES # (AUTO) 1.5 (1.0-3.2); LYMPHOCYTES % 23.5 % (18.0-39.1); MEAN CORPUSCULAR HEMOGLOBIN 29.1 pg (28-32); MEAN CORPUSCULAR HGB CONC 35.9 g/dL (31-35); MONOCYTES # (AUTO) 0.6 (0.2-0.8); MONOCYTES % 8.6 % (4.4-11.3); NEUTROPHILS # (AUTO) 4.3 (2.1-6.9); PLATELET COUNT 214 x10e3/uL (140-360); RED BLOOD COUNT 2.89 x10e6/uL (3.6-5.1); RED CELL DISTRIBUTION WIDTH 13.3 % (11.7-14.4); WHITE BLOOD COUNT 6.54 x10e3/uL (4.8-10.8)
[2023-12-24] MEDS: SODIUM CHLORIDE 1 GM TAB PO SCH (10:32)
[2023-12-24 12:11] LABS: ANION GAP 11.2 mmol/L (8-16); CALCIUM 8.3 mg/dL (8.4-10.2); CREATININE, SERUM 0.94 mg/dL (0.57-1.11)
[2023-12-24 12:15] LABS: POTASSIUM 3.2 mmol/L (3.5-5.1)
[2023-12-24] MEDS: PEG (High)/E-LYTE SOLN 4,000 ML BTL PO ONE (17:05)
[2023-12-25] VITALS (8 sets, daily range): BP systolic 134–144; BP diastolic 62–75; PULSE 74–91; RESP 16–18; TEMP 97.5–98.7; O2SAT 96–100
[2023-12-25 06:25] LABS: BASOPHILS % 0.4 % (0.0-1.0); EOSINOPHILS # (AUTO) 0.1 (0.0-0.4); EOSINOPHILS % 2.3 % (0.0-6.0); HEMATOCRIT 25.6 % (34.2-44.1); LYMPHOCYTES # (AUTO) 1.7 (1.0-3.2); LYMPHOCYTES % 32.4 % (18.0-39.1); MEAN CORPUSCULAR HEMOGLOBIN 28.6 pg (28-32); MEAN CORPUSCULAR HGB CONC 35.2 g/dL (31-35); MEAN CORPUSCULAR VOLUME 81.3 fL (81-99); MONOCYTES # (AUTO) 0.5 (0.2-0.8); MONOCYTES % 9.7 % (4.4-11.3); NEUTROPHILS # (AUTO) 2.9 (2.1-6.9); PLATELET COUNT 238 x10e3/uL (140-360); RED BLOOD COUNT 3.15 x10e6/uL (3.6-5.1); RED CELL DISTRIBUTION WIDTH 13.2 % (11.7-14.4); WHITE BLOOD COUNT 5.24 x10e3/uL (4.8-10.8)
[2023-12-25 06:43] LABS: ALBUMIN 2.8 g/dL (3.5-5.0); ANION GAP 13.8 mmol/L (8-16); BILIRUBIN,TOTAL 0.4 mg/dL (0.2-1.2); CALCIUM 8.2 mg/dL (8.4-10.2); CREATININE, SERUM 0.8 mg/dL (0.57-1.11); TOTAL PROTEIN 5.6 g/dL (6.5-8.1)
[2023-12-25 06:51] LABS: POTASSIUM 2.8 mmol/L (3.5-5.1)
[2023-12-25] MEDS ORDERED: POTASSIUM CHLORIDE 20MEQ/100ML 200 ML IV ONE (07:00)
[2023-12-25] MEDS: POTASSIUM CHLORIDE 20MEQ/100ML 200 ML IV ONE (09:34)
[2023-12-25] MEDS ORDERED: PROPOFOL IV EMULSION 10 MG/ML 20 ML VIAL ONE (14:24)
[2023-12-25] MEDS ORDERED: DEXMEDETOMIDINE HCL 200 MCG/2 ML VIAL ONE (14:24)
[2023-12-25] MEDS ORDERED: LIDOCAINE HCL 2% LOCAL INJ 5 ML SDV VIAL INJ ONE (14:24)
[2023-12-25] MEDS ORDERED: POTASSIUM CHLORIDE 20MEQ/100ML 300 ML IV ONE (14:30)
[2023-12-25] MEDS: MAGNESIUM SULF 1GRAM/DEXTROSE 300 ML IV ONE (15:07)
[2023-12-25] MEDS: POTASSIUM CHLORIDE 20MEQ/100ML 100 ML IV ONE (15:08)
[2023-12-26 00:26] VITALS: BP 133/73; PULSE 90; RESP 17; TEMP 99; O2SAT 100
[2023-12-26 04:00] VITALS: BP 135/74; PULSE 78; RESP 18; TEMP 98.2; O2SAT 98
[2023-12-26 08:25] VITALS: BP 155/63; PULSE 107; RESP 17; TEMP 99.1; O2SAT 100
[2023-12-26 09:00] VITALS: BP 155/63; PULSE 107; RESP 17; TEMP 99.1; O2SAT 100
== END 2023-12-26 09:17 | disposition home or self-care (01) | DRG 644 ==
LOC: ER 09:35 → ERHOLD 11:33 → ICU 12:35 → MED/SURG2 12-22 19:52
PROVIDERS: ADMIT Internal Medicine; ATTEND Internal Medicine
PROC: 02HV33Z Insertion of Infusion Device into Superior Vena Cava, Percutaneous Approach (ICD-10-PCS; principal; 2023-12-21)
PROC: B548ZZA Ultrasonography of Superior Vena Cava, Guidance (ICD-10-PCS; 2023-12-21)
PROC: 0DBL8ZZ Excision of Transverse Colon, Via Natural or Artificial Opening Endoscopic (ICD-10-PCS; 2023-12-25)
PROC: 0DB98ZX Excision of Duodenum, Via Natural or Artificial Opening Endoscopic, Diagnostic (ICD-10-PCS; 2023-12-25)
PROC: 0DB78ZX Excision of Stomach, Pylorus, Via Natural or Artificial Opening Endoscopic, Diagnostic (ICD-10-PCS; 2023-12-25)
DX: E22.2 Syndrome of inappropriate secretion of antidiuretic hormone (principal); E87.20 Acidosis, unspecified; D50.0 Iron deficiency anemia secondary to blood loss (chronic); E86.0 Dehydration; E83.42 Hypomagnesemia; E87.6 Hypokalemia; K29.50 Unspecified chronic gastritis without bleeding; K21.9 Gastro-esophageal reflux disease without esophagitis; D12.3 Benign neoplasm of transverse colon; K57.30 Diverticulosis of large intestine without perforation or abscess without bleeding; K64.8 Other hemorrhoids; I10 Essential (primary) hypertension; E78.5 Hyperlipidemia, unspecified; E11.9 Type 2 diabetes mellitus without complications; Z79.84 Long term (current) use of oral hypoglycemic drugs; E89.0 Postprocedural hypothyroidism; D72.819 Decreased white blood cell count, unspecified; Z11.52 Encounter for screening for COVID-19; Z87.19 Personal history of other diseases of the digestive system; Z79.899 Other long term (current) drug therapy
CPT/HCPCS: 36415; 36569; 43239; 45378; 51700; 71045; 74177; 80048; 80053; 81001; 82024; 82550; 82947; 82948; 83036; 83690; 83735; 83935; 84100; 84295; 84300; 84436; 84439; 84443; 84479; 84484; 84520; 84550; 85025; 85610; 85730; 87086; 88305; 88342; 93005; 94760; 99252; 99284; J2001; J2270; J2405; J2550; J3360; J3475; J3480; J7030; Q9967; U0002

== ENCOUNTER 2024-03-16 18:09 | Emergency (ER) | payer MEDICARE ==
[~2024-03-16] VITALS: Ht 147.3 cm; Wt 54.4 kg
[~2024-03-16 18:09] MED LIST changes: +ULTRAM 50MG50 MG PO
[2024-03-16] MEDS: TETANUS/DIPHTHERIA TOX ADULT 0.5 ML SYR IM ONE (19:02)
[2024-03-16 19:17] VITALS: PULSE 73; RESP 19; TEMP 98.2
[2024-03-16] MEDS: LIDOCAINE HCL 1% LOCAL INJ 20 ML VIAL INJ ONE (19:17)
[2024-03-16] MEDS: LIDOCAINE 1% 10 ML MULTIDOSE VIAL IJ ONE (19:17)
[2024-03-16] MEDS: HYDROCODONE/APAP 10MG-325MG TAB PO ONE (19:20)
[2024-03-16] MEDS ORDERED: ULTRAM 50MG50 MG PO (19:41)
[2024-03-16 19:48] VITALS: BP 140/75; PULSE 73; RESP 19; TEMP 98.2; O2SAT 100
[2024-03-16] MEDS ORDERED: CLEOCIN HCL300 MG PO (19:52)
[2024-03-16] MEDS ORDERED: MUPIROCIN22 GM TOP (19:53)
== END 2024-03-16 20:19 | disposition home or self-care (01) ==
LOC: ER 18:22
DX: S81.012A Laceration without foreign body, left knee, initial encounter (principal); Y92.009 Unspecified place in unspecified non-institutional (private) residence as the place of occurrence of the external cause; W11.XXXA Fall on and from ladder, initial encounter; Z23 Encounter for immunization; I10 Essential (primary) hypertension; E78.5 Hyperlipidemia, unspecified; E11.9 Type 2 diabetes mellitus without complications; Z79.84 Long term (current) use of oral hypoglycemic drugs; Z79.899 Other long term (current) drug therapy
CPT/HCPCS: 12004; 73562; 90471; 90714; 99284; J2001

== ENCOUNTER 2024-03-21 19:54 | Emergency (ER) | payer MEDICARE ==
[~2024-03-21 19:54] MED LIST changes: +CLEOCIN HCL300 MG PO; +MUPIROCIN22 GM TOP
== END 2024-03-21 20:11 | disposition short-term general hospital (02) ==
LOC: ER 19:58
DX: Z48.01 Encounter for change or removal of surgical wound dressing (principal)